=== PATIENT | male | born 2000 | race Caucasian/White ===

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

== ENCOUNTER 2020-01-01 18:09 | Emergency (ER) | payer BC ==
--- NOTE | 2020-01-01 18:34 | EDPHYS ---
Physician Documentation [facility] Name: Alexander Justice Age: 19 yrs Sex: Male : 2000 Arrival Date: 01/01/2020 Time: 18:13 Bed 14 Private MD: ED Physician Sumi Ray HPI: 12/31 19:08 This 19 yrs old Male presents to ER via Ambulatory with complaints of Rash. kb 19:08 The patient's rash thought to be caused by Dermatitis. The rash is located on the body kb diffusely. The rash can be described as macular, papular. Onset: The symptoms/episode began/occurred 5 day(s) ago. Associated signs and symptoms: Pertinent positives: itching. Severity of symptoms: At their worst the symptoms were moderate in the emergency department the symptoms are unchanged. Treatment given at home: Benadryl. The patient has not experienced similar symptoms in the past. The patient has not recently seen a physician. Historical: - Allergies: 18:34 NKA; sv - PMHx: 18:34 allergies; Diabetes - NIDDM; No longer has DM due to weight loss; Heart Murmur; sv - PSHx: 18:34 None; sv - Immunization history:: Adult Immunizations up to date. - Social history:: Smoking status: . ROS: 19:07 Constitutional: Negative for fever, chills, and weight loss, Cardiovascular: Negative kb for chest pain, palpitations, and edema, Respiratory: Negative for shortness of breath, cough, wheezing, and pleuritic chest pain, Abdomen/GI: Negative for abdominal pain, nausea, vomiting, diarrhea, and constipation, Back: Negative for injury and pain, MS/Extremity: Negative for injury and deformity, Neuro: Negative for headache, weakness, numbness, tingling, and seizure. 19:07 Skin: Positive for rash. Exam: 19:07 Constitutional: This is a well developed, well nourished patient who is awake, alert, kb and in no acute distress. Head/Face: Normocephalic, atraumatic. Chest/axilla: Normal chest wall appearance and motion. Nontender with no deformity. No lesions are appreciated. Cardiovascular: Regular rate and rhythm with a normal S1 and S2. No gallops, murmurs, or rubs. Normal PMI, no JVD. No pulse deficits. Respiratory: Lungs have equal breath sounds bilaterally, clear to auscultation and percussion. No rales, rhonchi or wheezes noted. No increased work of breathing, no retractions or nasal flaring. Abdomen/GI: Soft, non-tender, with normal bowel sounds. No distension or tympany. No guarding or rebound. No evidence of tenderness throughout. MS/ Extremity: Pulses equal, no cyanosis. Neurovascular intact. Full, normal range of motion. Neuro: Awake and alert, GCS 15, oriented to person, place, time, and situation. Cranial nerves II-XII grossly intact. Motor strength 5/5 in all extremities. Sensory grossly intact. Cerebellar exam normal. Normal gait. 19:07 Skin: rash a mild rash is noted, consistent with contact dermatitis, on the back, chest and abdomen. Vital Signs: 18:33 Weight 127.91 kg; Height 5 ft. 11 in. (180.34 cm); sv 18:37 BP 138 / 72; Pulse 88; Resp 18; Temp 98.9; Pulse Ox 100% on R/A; Weight 127.01 kg; ah Height 5 ft. 11 in. (180.34 cm); 18:37 Body Mass Index 39.05 (127.01 kg, 180.34 cm) ah MDM: 18:28 Patient medically screened. kb 19:06 Data reviewed: vital signs, nurses notes. Data interpreted: Pulse oximetry: on room air kb is 100 %. Interpretation: normal. Counseling: I had a detailed discussion with the patient and/or guardian regarding: the historical points, exam findings, and any diagnostic results supporting the discharge/admit diagnosis, the need for outpatient follow up, a family practitioner, to return to the emergency department if symptoms worsen or persist or if there are any questions or concerns that arise at home. Administered Medications: No medications were administered Disposition: 01/01/20 18:33 Discharged to Home. Impression: Allergic contact dermatitis. - Condition is Stable. - Discharge Instructions: Contact Dermatitis, [id number]. - Prescriptions for Pepcid 20 mg Oral Tablet - take 1 tablet by ORAL route every 12 hours for 5 days; 10 tablet. Prednisone 20 mg Oral Tablet - take 1 tablet by ORAL route once daily for 5 days; 5 tablet. - Medication Reconciliation Form, Thank You Letter, Antibiotic Education, Prescription Opioid Use form. - Follow up: Emergency Department; When: As needed; Reason: Worsening of condition. Follow up: Private Physician; When: 2 - 3 days; Reason: Recheck today's complaints, Continuance of care, Re-evaluation by your physician. Signatures: Colleen De Luna FNP-C TRIMMING ASSEMBLER-Ckb Queenie Sheth RN RN sv Corrections: (The following items were deleted from the chart) 18:42 18:33 01/01/2020 18:33 Discharged to Home. Impression: Allergic contact dermatitis. sv Condition is Stable. Forms are Medication Reconciliation Form, Thank You Letter, Antibiotic Education, Prescription Opioid Use. Follow up: Emergency Department; When: As needed; Reason: Worsening of condition. Follow up: Private Physician; When: 2 - 3 days; Reason: Recheck today's complaints, Continuance of care, Re-evaluation by your physician. kb
--- NOTE | 2020-01-01 18:43 | ER ---
Nurse's Notes [facility] Name: Alexander Justice Age: 19 yrs Sex: Male : 2000 Arrival Date: 01/01/2020 Time: 18:13 Bed 14 Private MD: Diagnosis: Allergic contact dermatitis Presentation: 12/31 18:33 Chief complaint: Patient states: rash started on the back first on Thursday and spread sv to his front chest area. Coronavirus screen: Proceed with normal triage. Patient denies a cough. Patient denies shortness of breath or difficulty breathing. Patient denies measured and/or subjective temperature greater than 100.4F prior to today's visit. Patient denies travel on a cruise ship or to a country the [facility] currently lists as an affected area. Patient denies contact with known and/or suspected case of COVID-19. Ebola Screen: No symptoms or risks identified at this time. Risk Assessment: Do you want to hurt yourself or someone else? Patient reports no desire to harm self or others. Onset of symptoms was December 28, 2019. 18:33 Method Of Arrival: Ambulatory sv 18:33 Acuity: ABIGAIL 5 sv 18:42 Initial Sepsis Screen: Does the patient meet any 2 criteria? No. Patient's initial sv sepsis screen is negative. Does the patient have a suspected source of infection? No. Patient's initial sepsis screen is negative. Triage Assessment: 18:34 General: Appears in no apparent distress. comfortable, obese, well developed, Behavior sv is calm, cooperative, appropriate for age. Pain: Denies pain. Neuro: Level of Consciousness is awake, alert, obeys commands, Oriented to person, place, time, situation, Moves all extremities. Full function Gait is steady, Speech is normal. Respiratory: Respiratory effort is even, unlabored. Derm: Skin is pink, warm \T\ dry. Historical: - Allergies: 18:34 NKA; sv - PMHx: 18:34 allergies; Diabetes - NIDDM; No longer has DM due to weight loss; Heart Murmur; sv - PSHx: 18:34 None; sv - Immunization history:: Adult Immunizations up to date. - Social history:: Smoking status: . Screenin:35 Abuse screen: Denies threats or abuse. Denies injuries from another. Nutritional sv screening: No deficits noted. Tuberculosis screening: No symptoms or risk factors identified. Fall Risk None identified. Assessment: 18:42 Reassessment: Patient appears in no apparent distress at this time. No changes from sv previously documented assessment. Patient and/or family updated on plan of care and expected duration. Pain level reassessed. Patient is alert, oriented x 3, equal unlabored respirations, skin warm/dry/pink. Vital Signs: 18:33 Weight 127.91 kg; Height 5 ft. 11 in. (180.34 cm); sv 18:37 BP 138 / 72; Pulse 88; Resp 18; Temp 98.9; Pulse Ox 100% on R/A; Weight 127.01 kg; Height 5 ft. 11 in. (180.34 cm); 18:37 Body Mass Index 39.05 (127.01 kg, 180.34 cm) ED Course: 18:13 Patient arrived in ED. mr 18:16 Colleen De Luna [facility]-C [facility]. kb 18:16 Sumi Ray MD is Attending Physician. kb 18:34 Triage completed. sv 18:34 Arm band placed on. sv 18:35 Patient has correct armband on for positive identification. Bed in low position. Call sv light in reach. 18:42 Queenie Sheth, RN is Primary Nurse. sv 18:42 No provider procedures requiring assistance completed. Patient did not have IV access sv during this emergency room visit. Administered Medications: No medications were administered Outcome: 18:33 Discharge ordered by MD. kb 18:42 Discharged to home ambulatory. sv 18:42 Condition: stable 18:42 Discharge instructions given to patient, Instructed on discharge instructions, follow up and referral plans. medication usage, Demonstrated understanding of instructions, follow-up care, medications, Prescriptions given X 2. 18:42 Patient left the ED. sv Signatures: Colleen De Luna FNP-C FNP-Queenie Castillo, RN [place] Miley Marino Amy, RN RN
[2020-01-01 19:01] VITALS: BP 138/72; TEMP 98.9; O2SAT 100
== END 2020-01-01 18:42 | disposition home or self-care (01) ==
LOC: ER 18:09
DX: L23.9 Allergic contact dermatitis, unspecified cause (principal)
CPT/HCPCS: 99282

== ENCOUNTER 2020-08-26 19:52 | Emergency (ER) | payer BC ==
[2020-08-26] MEDS ORDERED: predniSONE 20 MG TAB ONE (21:41)
[2020-08-26 22:03] LABS: SARS-COV-2 RT PCR NEGATIVE (NEGATIVE)
--- NOTE | 2020-08-26 23:06 | EDPHYS ---
Physician Documentation [facility] Name: Alexander Justice Age: 20 yrs Sex: Male : 2000 Arrival Date: 08/26/2020 Time: 19:53 Bed 18 Private MD: ED Physician Devan Cage HPI: 08/26 21:05 This 20 yrs old Male presents to ER via Ambulatory with complaints of Sore cp Throat, Wheezing. Historical: - Allergies: 20:04 NKA; mg2 - Home Meds: 20:04 None [Active]; mg2 - PMHx: 20:04 allergies; Heart Murmur; Diabetes - NIDDM; No longer has DM due to weight loss; mg2 - PSHx: 20:04 None; mg2 - Immunization history:: Flu vaccine is not up to date. - Social history:: Smoking status: Patient denies any tobacco usage or history of. Patient/guardian denies using alcohol, street drugs, IV drugs. ROS: 21:10 Constitutional: Negative for body aches, chills, fever, poor PO intake. cp 21:10 Eyes: Negative for injury, pain, redness, and discharge. cp 21:10 ENT: Positive for sore throat, Negative for drainage from ear(s), ear pain, difficulty swallowing, difficulty handling secretions. 21:10 Cardiovascular: Negative for chest pain, palpitations. 21:10 Respiratory: Positive for cough, with white sputum, shortness of breath, wheezing. 21:10 Abdomen/GI: Negative for abdominal pain, nausea, vomiting, and diarrhea. 21:10 Skin: Negative for rash. 21:10 Neuro: Negative for altered mental status, headache, weakness. 21:10 All other systems are negative. Exam: 21:15 Constitutional: The patient appears in no acute distress, alert, awake, non-toxic, well cp developed, well nourished, obese. 21:15 Head/Face: Normocephalic, atraumatic. cp 21:15 Eyes: Periorbital structures: appear normal, Conjunctiva: normal, no exudate, no injection, Sclera: no appreciated abnormality, Lids and lashes: appear normal, bilaterally. 21:15 ENT: External ear(s): are unremarkable, Nose: is normal, Mouth: Lips: moist, Oral mucosa: moist, Posterior pharynx: Airway: no evidence of obstruction, patent, Tonsils: no enlargement, no erythema, no exudate. 21:15 Neck: ROM/movement: is normal, is supple, without pain, no range of motions limitations, no meningismus, Lymph nodes: no appreciated lymphadenopathy. 21:15 Chest/axilla: Inspection: normal, Palpation: is normal, no crepitus, no tenderness. 21:15 Cardiovascular: Rate: tachycardic, Rhythm: regular. 21:15 Respiratory: the patient does not display signs of respiratory distress, Respirations: normal, no use of accessory muscles, no retractions, labored breathing, is not present, Breath sounds: decreased breath sounds, are not appreciated, stridor, is not appreciated, wheezing: inspiratory that is mild, is heard in the left posterior lower lobe, right posterior middle lobe and right posterior lower lobe. 21:15 Abdomen/GI: Exam negative for discomfort, distension, guarding, Inspection: abdomen appears normal. 21:15 Back: pain, is absent, ROM is normal. Vital Signs: 20:02 BP 151 / 86; Pulse 103; Resp 18; Temp 98.4; Pulse Ox 95% on R/A; Weight 126.55 kg; mg2 Height 5 ft. 11 in. (180.34 cm); 20:31 BP 133 / 72; Pulse 100; Resp 18; Pulse Ox 96% on R/A; jb4 21:45 BP 126 / 73; Pulse 96; Resp 16; Pulse Ox 95% on R/A; jb4 23:00 BP 124 / 86; Pulse 91; Resp 19; Pulse Ox 94% on R/A; jb4 20:02 Body Mass Index 38.91 (126.55 kg, 180.34 cm) mg2 MDM: 20:48 Patient medically screened. cp 23:05 Data reviewed: vital signs, nurses notes, lab test result(s), radiologic studies, plain cp films. 23:05 Differential diagnosis: group A strep tonsillitis, influenza, pharyngitis, tonsillitis, cp uvulitis, COVID-19, pneumonia. Test interpretation: by ED physician or midlevel provider: chest xray negative for infiltrates. Counseling: I had a detailed discussion with the patient and/or guardian regarding: the historical points, exam findings, and any diagnostic results supporting the discharge/admit diagnosis, lab results, radiology results, to return to the emergency department if symptoms worsen or persist or if there are any questions or concerns that arise at home. Response to treatment: the patient's symptoms have markedly improved after treatment, and as a result, I will discharge patient. 08/26 20:49 Order name: Strep 08/26 21:16 Order name: XRAY Chest (1 view) 08/26 21:31 Order name: Throat Culture EDLA 08/26 22:03 Order name: COVID-19/FLU A+B EDLA Administered Medications: 21:12 Not Given (Medication is not currently available): Albuterol HFA Inhaler 2 puffs jb4 Inhalation once 21:28 Drug: predniSONE 60 mg Route: PO; jb4 Disposition: 08/27 03:51 Co-signature as Attending Physician, Devan Cage MD. mh7 Disposition: 08/26/20 23:05 Discharged to Home. Impression: Acute upper respiratory infection, unspecified. - Condition is Stable. - Discharge Instructions: Upper Respiratory Infection, Adult. - Prescriptions for Tessalon Perles 100 mg Oral Capsule - take 2 capsule by ORAL route every 8 hours As needed; 30 capsule. Prednisone 20 mg Oral Tablet - take 2 tablet by ORAL route once daily for 5 days; 10 tablet. Albuterol Sulfate 90 mcg/actuation - inhale 1-2 puff by INHALATION route every 4-6 hours; 1 Inhaler. - Medication Reconciliation Form, Thank You Letter, Antibiotic Education, Prescription Opioid Use form. - Follow up: Private Physician; When: 1 - 2 days; Reason: Worsening of condition. - Problem is new. - Symptoms have improved. Signatures: Dispatcher [employer] [facility] Abraham Boone PA PA cp Bryson, James, RN RN jb4 Silvio Hebert RN RN [facility] Devan Cage MD MD mh7 Corrections: (The following items were deleted from the chart) 08/26 21:16 20:50 Influenza Screen (A \T\ B)+BA.LAB.BRZ ordered. [facility] 21: 20:50 CORONAVIRUS+MR.LAB.BRZ ordered. [facility] EDLA 23:25 23:05 08/26/2020 23:05 Discharged to Home. Impression: Acute upper respiratory jb4 infection, unspecified. Condition is Stable. Forms are Medication Reconciliation Form, Thank You Letter, Antibiotic Education, Prescription Opioid Use. Follow up: Private Physician; When: 1 - 2 days; Reason: Worsening of condition. Problem is new. Symptoms have improved. cp 08/27 01:44 01:43 Constitutional: Negative for cp cp
--- NOTE | 2020-08-26 23:06 | ER ---
Nurse's Notes [facility] Name: Alexander Justice Age: 20 yrs Sex: Male : 2000 Arrival Date: 08/26/2020 Time: 19:53 Bed 18 Private MD: Diagnosis: Acute upper respiratory infection, unspecified Presentation: 08/26 20:02 Chief complaint: Patient states: i started having sore throat yesterday and cough with mg2 wheezing today. Coronavirus screen: Client presents with at least one sign or symptom that may indicate coronavirus-19. Standard/surgical mask placed on the client. Provider contacted for isolation considerations. Ebola Screen: No symptoms or risks identified at this time. Initial Sepsis Screen: Does the patient meet any 2 criteria? No. Patient's initial sepsis screen is negative. Does the patient have a suspected source of infection? No. Patient's initial sepsis screen is negative. Risk Assessment: Do you want to hurt yourself or someone else? Patient reports no desire to harm self or others. Onset of symptoms was August 26, 2020. 20:02 Method Of Arrival: Ambulatory mg2 20:02 Acuity: ABIGAIL 4 mg2 Historical: - Allergies: 20:04 NKA; mg2 - Home Meds: 20:04 None [Active]; mg2 - PMHx: 20:04 allergies; Heart Murmur; Diabetes - NIDDM; No longer has DM due to weight loss; mg2 - PSHx: 20:04 None; mg2 - Immunization history:: Flu vaccine is not up to date. - Social history:: Smoking status: Patient denies any tobacco usage or history of. Patient/guardian denies using alcohol, street drugs, IV drugs. Screenin:35 Abuse screen: Denies threats or abuse. Nutritional screening: No deficits noted. jb4 Tuberculosis screening: No symptoms or risk factors identified. Fall Risk None identified. Assessment: 20:31 General: Appears in no apparent distress. comfortable, Behavior is calm, cooperative, jb4 appropriate for age. Pain: Complains of pain in chest Pain does not radiate. Pain currently is 0 out of 10 on a pain scale. at worst was 5 out of 10 on a pain scale. Quality of pain is described as sharp, Is episodic. Neuro: Level of Consciousness is awake, alert, obeys commands, Oriented to person, place, time, situation. Cardiovascular: Patient's skin is warm and dry. Respiratory: Airway is patent Respiratory effort is even, unlabored, Respiratory pattern is regular, symmetrical, Breath sounds with wheezes bilaterally. GI: No signs and/or symptoms were reported involving the gastrointestinal system. : No signs and/or symptoms were reported regarding the genitourinary system. EENT: Throat is clear is pink with gag reflex present. Derm: Skin is intact, Skin is pink, warm \T\ dry. Musculoskeletal: Circulation, motion, and sensation intact. Range of motion: intact in all extremities. 21:30 Reassessment: Patient appears in no apparent distress at this time. Patient and/or jb4 family updated on plan of care and expected duration. Pain level reassessed. Patient is alert, oriented x 3, equal unlabored respirations, skin warm/dry/pink. 22:30 Reassessment: Patient appears in no apparent distress at this time. Patient and/or jb4 family updated on plan of care and expected duration. Pain level reassessed. Patient is alert, oriented x 3, equal unlabored respirations, skin warm/dry/pink. 23:24 Reassessment: Patient appears in no apparent distress at this time. Patient and/or jb4 family updated on plan of care and expected duration. Pain level reassessed. Patient is alert, oriented x 3, equal unlabored respirations, skin warm/dry/pink. Vital Signs: 20:02 BP 151 / 86; Pulse 103; Resp 18; Temp 98.4; Pulse Ox 95% on R/A; Weight 126.55 kg; mg2 Height 5 ft. 11 in. (180.34 cm); 20:31 BP 133 / 72; Pulse 100; Resp 18; Pulse Ox 96% on R/A; jb4 21:45 BP 126 / 73; Pulse 96; Resp 16; Pulse Ox 95% on R/A; jb4 23:00 BP 124 / 86; Pulse 91; Resp 19; Pulse Ox 94% on R/A; jb4 20:02 Body Mass Index 38.91 (126.55 kg, 180.34 cm) mg2 ED Course: 19:53 Patient arrived in ED. cl3 20:03 Triage completed. mg2 20:03 Arm band placed on. mg2 20:31 Peterson Rivera, RN is Primary Nurse. jb4 20:35 Patient has correct armband on for positive identification. Bed in low position. Call jb4 light in reach. Side rails up X 1. Pulse ox on. NIBP on. 20:40 Abraham Boone PA is PHCP. cp 20:40 Devan Cage MD is Attending Physician. cp 21:16 COVID swab sent to lab. jp3 21:16 Flu and/or RSV swab sent to lab. jp3 21:35 XRAY Chest (1 view) In Process Unspecified. EDMS 23:24 No provider procedures requiring assistance completed. Patient did not have IV access jb4 during this emergency room visit. Administered Medications: 21:12 Not Given (Medication is not currently available): Albuterol HFA Inhaler 2 puffs jb4 Inhalation once 21:28 Drug: predniSONE 60 mg Route: PO; jb4 Outcome: 23:05 Discharge ordered by . cp 23:24 Discharged to home ambulatory. jb4 23:24 Condition: stable 23:24 Discharge instructions given to patient, Instructed on discharge instructions, follow up and referral plans. medication usage, Demonstrated understanding of instructions, follow-up care, medications, Prescriptions given X 3. 23:25 Patient left the ED. jb4 Signatures: Dispatcher [employer] EDMS Abraham Boone PA PA cp Peterson Rivera RN RN jb4 Silvio Hebert RN RN [facility] [place] Atul Loza jp3 Kishor Dempsey cl3 Corrections: (The following items were deleted from the chart) 20:37 20:31 Respiratory: Airway is patent Respiratory effort is even, unlabored, Respiratory jb4 pattern is regular, symmetrical, Breath sounds are clear bilaterally. jb4
[2020-08-27 02:44] VITALS: TEMP 98.4
[2020-08-27 02:49] VITALS: BP 124/86; O2SAT 94
--- NOTE | 2020-08-27 08:11 | RAD REPORT ---
EXAM DESCRIPTION: RAD - Chest Single View - 08/26/2020 9:35 pm CLINICAL HISTORY: Cough;SOB COMPARISON: June 2019 TECHNIQUE: AP portable chest image was obtained 08/26/2020 9:35 pm . FINDINGS: Lungs are clear. Heart and vasculature are normal. No measurable pleural effusion and no p neumothorax. No acute bony abnormality seen. No acute aortic findings suspected. IMPRESSION: No acute cardiopulmonary process. No significant change from comparison study.
== END 2020-08-26 23:25 | disposition home or self-care (01) ==
LOC: ER 19:52
DX: J06.9 Acute upper respiratory infection, unspecified (principal); Z20.822 Contact with and (suspected) exposure to COVID-19
CPT/HCPCS: 87070; 87081; 0240U; 71045; 99284; J7512

== ENCOUNTER 2021-12-13 11:00 | Emergency (ER) | payer BC ==
--- OUTSIDE RECORDS SUMMARY | 2021-12-13 11:03 | XMS REPORT | Continuity of Care Document ---
:2000 Author Organization [facility] t Address [address] [place] [address] Dr. Bain [address] [place] [id number] Care Team Providers Name Role Phone Unavailable Unavailable Unavailable Problems This patient has no known problems. Allergies, Adverse Reactions, Alerts This patient has no known allergies or adverse reactions. Medications This patient has no known medications. Procedures This patient has no known procedures. Results This patient has no known results.
--- NOTE | 2021-12-13 12:36 | ER ---
Nurse's Notes [facility] Name: Alexander Justice Age: 21 yrs Sex: Male : 2000 Arrival Date: 12/13/2021 Time: 11:04 Bed 12 Private MD: Diagnosis: Streptococcal pharyngitis Presentation: 12/13 11:27 Chief complaint: Patient states: sore throat , headache, body aches, SOB since iw yesterday. Coronavirus screen: Client presents with at least one sign or symptom that may indicate coronavirus-19. Ebola Screen: Patient negative for fever greater than or equal to 101.5 degrees Fahrenheit, and additional compatible Ebola Virus Disease symptoms Patient denies exposure to infectious person. Patient denies travel to an Ebola-affected area in the 21 days before illness onset. No symptoms or risks identified at this time. Initial Sepsis Screen: Does the patient meet any 2 criteria? No. Patient's initial sepsis screen is negative. Does the patient have a suspected source of infection? No. Patient's initial sepsis screen is negative. Risk Assessment: Do you want to hurt yourself or someone else? Patient reports no desire to harm self or others. Onset of symptoms was December 12, 2021. 11:27 Method Of Arrival: Ambulatory iw 11:27 Acuity: ABIGAIL 4 iw Historical: - Allergies: 11:28 NKA; iw - PMHx: 11:28 allergies; Diabetes - NIDDM; No longer has DM due to weight loss; Heart Murmur; iw Vital Signs: 11:30 BP 140 / 86; Pulse 110; Resp 18 S; Temp 99.2; Pulse Ox 100% on R/A; iw ED Course: 11:04 Patient arrived in ED. rg4 11:22 Colleen De Luna FNP-C is [facility]. kb 11:22 Sumi Ray MD is Attending Physician. kb 11:28 Triage completed. iw 11:29 Arm band placed on. iw 11:35 Reanna Anderson, RN is Primary Nurse. iw 11:46 Flu Sent. mb7 11:46 COVID-19 SARS RT PCR (Document "Date of Onset" if Symptomatic) Sent. mb7 11:46 Strep Sent. mb7 Administered Medications: No medications were administered Outcome: 12:36 Discharge ordered by . kb 12:57 Patient left the ED. iw Signatures: Colleen De Luna, DELL-C [employer]-Reanna Marks, RN RN iw Roxanne Giles rg4 Miley Renteria mb7 Corrections: (The following items were deleted from the chart) 11:35 11:30 Pulse 110bpm; Resp 18bpm; Spontaneous; Pulse Ox 100% RA; Temp 99.2F; iw iw
--- NOTE | 2021-12-13 12:36 | EDPHYS ---
Physician Documentation [facility] Name: Alexander Justice Age: 21 yrs Sex: Male : 2000 Arrival Date: 12/13/2021 Time: 11:04 Bed 12 Private MD: ED Physician Sumi Ray HPI: 12/13 12:31 This 21 yrs old Male presents to ER via Ambulatory with complaints of Sore Throat. kb 12:31 The patient presents with sore throat. The patient describes throat pain as constant. kb Onset: The symptoms/episode began/occurred yesterday. Severity of symptoms: At their worst the symptoms were moderate, in the emergency department the symptoms are unchanged. Modifying factors: The symptoms are alleviated by nothing, the symptoms are aggravated by swallowing, Patient's oral intake status: limited fluid intake, limited food intake. Associated signs and symptoms: Pertinent positives: flu-like symptoms, headache, Sore throat. The patient has not experienced similar symptoms in the past. The patient has not recently seen a physician. Historical: - Allergies: 11:28 NKA; iw - PMHx: 11:28 allergies; Diabetes - NIDDM; No longer has DM due to weight loss; Heart Murmur; iw ROS: 12:29 Constitutional: Positive for body aches. kb 12:29 ENT: Positive for sore throat. 12:29 Respiratory: Positive for shortness of breath. 12:29 Neuro: Positive for headache. 12:29 All other systems are negative. 12:36 Abdomen/GI: Negative for abdominal pain, nausea, vomiting, diarrhea, and constipation. kb Exam: 12:30 Constitutional: This is a well developed, well nourished patient who is awake, alert, kb and in no acute distress. Head/Face: Normocephalic, atraumatic. Cardiovascular: Regular rate and rhythm with a normal S1 and S2. No gallops, murmurs, or rubs. No pulse deficits. Respiratory: Respirations even and unlabored. No increased work of breathing. Talking in full sentences Skin: Warm, dry with normal turgor. Normal color. MS/ Extremity: Pulses equal, no cyanosis. Neurovascular intact. Full, normal range of motion. Neuro: Awake and alert, GCS 15, oriented to person, place, time, and situation. Moves all extremities. Normal gait. Psych: Awake, alert, with orientation to person, place and time. Behavior, mood, and affect are within normal limits. 12:30 ENT: Posterior pharynx: Airway: normal, no evidence of obstruction, Tonsils: bilaterally enlarged, with erythema, Uvula: normal, midline, swelling, that is mild, erythema, that is moderate. Vital Signs: 11:30 BP 140 / 86; Pulse 110; Resp 18 S; Temp 99.2; Pulse Ox 100% on R/A; iw MDM: 11:27 Patient medically screened. kb 12:29 Data reviewed: vital signs, nurses notes. Data interpreted: Pulse oximetry: on room air kb is 100 %. Interpretation: normal. Counseling: I had a detailed discussion with the patient and/or guardian regarding: the historical points, exam findings, and any diagnostic results supporting the discharge/admit diagnosis, lab results, the need for outpatient follow up, a family practitioner, to return to the emergency department if symptoms worsen or persist or if there are any questions or concerns that arise at home. 12/13 11:27 Order name: Strep; Complete Time: 12:32 kb 12/13 11:27 Order name: Flu; Complete Time: 12:25 kb 12/13 11:27 Order name: COVID-19 SARS RT PCR (Document "Date of Onset" if Symptomatic); Complete kb Time: 12:35 Administered Medications: No medications were administered Disposition: 14:38 Co-signature as Attending Physician, Sumi Ray MD I agree with the assessment ma2 and plan of care. Disposition Summary: 12/13/21 12:36 Discharge Ordered Location: Home kb Condition: Stable kb Diagnosis - Streptococcal pharyngitis kb Followup: kb - With: Emergency Department - When: As needed - Reason: Worsening of condition Followup: kb - With: Private Physician - When: 2 - 3 days - Reason: Recheck today's complaints, Continuance of care, Re-evaluation by your physician Discharge Instructions: - Discharge Summary Sheet kb - Strep Throat, Adult, [id number] kb Forms: - Medication Reconciliation Form kb - Thank You Letter kb - Antibiotic Education kb - Prescription Opioid Use kb Prescriptions: - Augmentin 875-125 mg Oral Tablet - take 1 tablet by ORAL route every 12 hours for 10 days; 20 tablet; Refills: 0, kb Product Selection Permitted Signatures: Dispatcher [employer] Colleen Velasquez, SUPER[employer]OR [employer]-C SU[employer]OR [employer]-Ckb Reanna Anderson, RN RN Sumi Waggoner MD MD ma2
[2021-12-13 13:12] VITALS: BP 140/86; TEMP 99.2; O2SAT 100
== END 2021-12-13 12:57 | disposition home or self-care (01) ==
LOC: ER 11:00
DX: J02.0 Streptococcal pharyngitis (principal); Z20.822 Contact with and (suspected) exposure to COVID-19
CPT/HCPCS: 87081; 87804 ×2; 99282; U0003

== ENCOUNTER 2022-03-31 08:29 | Emergency (ER) | payer BC ==
--- OUTSIDE RECORDS SUMMARY | 2022-03-31 08:34 | XMS REPORT | Continuity of Care Document ---
:2000 Author Organization [facility] t Address [address] [place] [address] Care Team Providers Name Role Phone Unavailable Unavailable Unavailable Payers Payer Name Policy Type Policy Number Effective Date Expiration Date S ource Problems This patient has no known problems. Allergies, Adverse Reactions, Alerts Allergy Allergy Status Severity Reaction(s) Onset Inactive Treating Comm ents Source Name Type Date Date Clinician Unable DA Active U 2020-06 [facility] to 0-01 Assess 00:00: 00 No Known DA Active U 2020-06 [facility] Drug 0-01 Allergie 00:00: s 00 Medications This patient has no known medications. Procedures This patient has no known procedures. Encounters Start End Encounter Admission Attending Care Care Encounter Source Date/Time Date/Time Type Type Clinicians Facility Department ID 2021-03-29 Inpatient [facility] [id number] [facility] 15:53:00 75 2021-03-29 2021-03-29 Emergency [facility] [id number] [facility] 15:53:00 15:53:00 75 Results Test Description Test Time Test Comments Results Result Comments Source UA, Urinalysis Rflx Cult/Sedmt 2021-03-29 16:52:00 Test Item Value Reference Range Interpretation Comme nts Color,Urine (test code = UCOL) Yellow Y Clarity,Urine (test code = UCLAR) Clear Clear PH,Urine (test code = UPH.XX) 7.0 5.5-8.5 Specific [place],Urine (test code = USG) 1.025 1.005-1.030 N Blood,Urine (test code = UBLD) Negative cells/uL Negative Protein,Urine (test code = UPRO) Negative mg/dL Negative Glucose,Urine (UA) (test code = UGLU) Negative mg/dL Negative Ketones,Urine (test code = UKET) Negative mg/dL Negative Nitrate,Urine (test code = UNIT) Negative Negative Bilirubin,Urine (test code = UBIL) Negative mg/dL Negative Urobilinogen,Urine (test code = UURO) 1.0 mg/dL Negative Leukocyte Esterase,Urine (test code = ULEU) Negative cells/uL Negat zaki Drug Screen,[id number] 16:52:00 Test Item Value Reference Range Interpretation Comments PCP Phencyclidine Screen,Urine (test Negative Negative code = PCPU) Amphetamine Screen,Urine (test code Negative Negative = AMPU) Methadone Screen,Urine (test code = Negative Negative METHU) Opiate Screen,Urine (test code = Negative Negative UOPIS) Barbituates Screen,Urine (test code Negative Negative = BARBU) Benzodiazepines Screen,Urine (test Negative Negative code = UBENZS) Cocaine Screen,Urine (test code = Negative Negative UCOCS) Cannabinoid Screen,Urine (test code Negative Negative = UTHCS) Propoxyphene Screen, Urine (test Negative Negative code = UPROP) Ethanol [id number] 16:31:00 Test Item Value Reference Range Interpretation Comments Ethanol (test code = ETOH) 3 mg/dL Coronavirus PCR, COVID19 [id number] 16:31:00 Test Item Value Reference Range Interpretation Comments Coronavirus PCR, For use under Emergency COVID19 Rapid (test Use Authorization (EUA) code = SARSCOV2) only. Coronavirus PCR, Reference Range: COVID19 Rapid (test Negative code = MCNMEMI14.1) SARS-CoV-2 PCR Result: Negative by PCR (test code = SARS-CoV-2 PCR Result:) COVID-19 Status: AsymptomaticComplete Blood Count Auto [id number] 16:31:00 Test Item Value Reference Range Interpretation Comments White Blood Count (test code = 10.1 x10 3/uL 4.4-10.5 N WBCT) Red Blood Count (test code = 5.18 x10 6/uL 4.10-5.70 N RBC) Hemoglobin (test code = HGBT) 14.6 g/dL 13.4-17.4 N Hematocrit (test code = HCTT) 44.8 % 38.7-52.0 N Mean Corpuscular Volume (test 86.50 fL 80.00-100.00 N code = MCV) Mean Corpuscular Hemoglobin 28.2 pg 27.0-32.5 N (test code = MCH) Mean Corpuscular HGB Conc 32.60 g/dL 32.00-37.50 N (test code = MCHC) RDW Coefficient of Variation 12.7 % 11.5-14.5 N (test code = RDWCV) Platelet Count (test code = 254.0 x10 3/uL 140.0-440.0 N PLTT) Mean Platelet Volume (test 10.1 fL code = MPV) Immature Granulocytes % (Auto) 0.3 % 0.0-5.0 N (test code = IMMGRAN%) Neutrophils % (Auto) (test 64.0 % 36.0-70.0 N code = NE%) Lymphocytes % (Auto) (test 24.1 % 12.0-44.0 N code = LY%) Monocytes % (Auto) (test code 9.8 % 0.0-11.0 N = MO%) Eosinophils % (Auto) (test 1.4 % 0.0-7.0 N code = EO%) Basophils % (Auto) (test code 0.4 % 0.0-2.0 N = BA%) Immature Granulocytes # (Auto) 0.03 x10 3/uL (test code = IMMGRAN#) Neutrophils # (Auto) (test 6.5 x10 3/uL 1.6-7.4 N code = NE#) Lymphocytes # (Auto) (test 2.43 x10 3/uL 0.50-4.60 N code = LY#) Monocytes # (Auto) (test code 0.99 x10 3/uL 0.00-1.20 N = MO#) Eosinophils # (Auto) (test 0.14 x10 3/uL 0.00-0.74 N code = EO#) Basophils # (Auto) (test code 0.04 x10 3/uL 0.00-0.21 N = BA#) nRBC Abs (test code = NRBCA) 0 nRBC Pct (test code = NRBCP) 0 % Comprehensive Metabolic [id number] 16:31:00 Test Item Value Reference Range Interpretation Comments SODIUM (test code = NA) 142.0 mmol/L 136.0-145.0 N Potassium,K (test code = K) 3.8 mmol/L 3.0-5.1 N Chloride (test code = CL) 106 mmol/L 98-107 N Carbon Dioxide (test code = 29 mmol/L 20-31 N CO2) Anion Gap (test code = GAP) 7 mmol/L 5-15 N Blood Urea Nitrogen (test code 15 mg/dL 9-23 N = BUN) Creatinine (test code = CREATT) 0.92 mg/dL 0.55-1.02 N Creatinine Clr Calc Pharmacy 179.47 mL/min (test code = CRCLPHA) Estimated GFR ( Estefani > 60 mL/min/1.73m2 (test code = EGFRAA) Estimated GFR (Non Afr Estefani > 60 mL/min/1.73m2 (test code = EGFRNAA) BUN/Creatinine Ratio (test code 16 ratio 10-20 N = BCRATIO) Glucose (test code = GLU) 121 mg/dL 74-106 H Osmolality,Calculated (test 295.3 code = OSMOC) Calcium (test code = CA) 9.0 mg/dL 8.3-10.6 N Bilirubin,Total (test code = 0.2 mg/dL 0.2-1.1 N BILIT) Aspartate Amino Transferase 18 U/L 0-34 N (test code = AST) Alanine Aminotransferase (test 19 U/L 10-49 N code = ALT) Total Protein (test code = TP) 7.3 g/dL 5.7-8.2 N Albumin Level (test code = ALB) 4.8 g/dL 3.2-4.8 N Globulin (test code = GLOB) 2.5 mg/dL 2.3-3.5 N Albumin/Globulin Ratio (test 1.9 ratio 0.8-2.0 N code = AGRATIO) Alkaline Phosphatase (test code 50 U/L 46-116 N = ALP)
--- NOTE | 2022-03-31 10:49 | ER ---
Nurse's Notes [facility] Name: Alexander Justice Age: 21 yrs Sex: Male : 2000 Arrival Date: 03/31/2022 Time: 08:32 Bed 11 Private MD: Diagnosis: Acute upper respiratory infection, unspecified Presentation: 03/31 08:42 Chief complaint: Patient states: he was around his cousin last week who was dx with ap3 pnumonia. patient now reports body aches, cough, fatigue and headache. patient denies fever. Coronavirus screen: Client presents with at least one sign or symptom that may indicate coronavirus-19. Ebola Screen: No symptoms or risks identified at this time. Initial Sepsis Screen: Does the patient meet any 2 criteria? No. Patient's initial sepsis screen is negative. Does the patient have a suspected source of infection? No. Patient's initial sepsis screen is negative. Risk Assessment: Do you want to hurt yourself or someone else? Patient reports no desire to harm self or others. Onset of symptoms was March 28, 2022. 08:42 Method Of Arrival: Ambulatory ap3 08:42 Acuity: ABIGAIL 4 ap3 Triage Assessment: 08:44 General: Appears in no apparent distress. Behavior is calm, cooperative, appropriate ap3 for age. Pain: Complains of pain in generalized body aches. Neuro: Level of Consciousness is awake, alert, obeys commands, Oriented to person, place, time, situation. Cardiovascular: Patient's skin is warm and dry. Respiratory: Airway is patent Respiratory effort is even, unlabored, Respiratory pattern is regular, symmetrical. 08:45 General: Reports feeling ill for fatigue for. Respiratory: Reports cough that is. ap3 Historical: - Allergies: 08:44 NKA; ap3 - PMHx: 08:44 allergies; Diabetes - NIDDM; No longer has DM due to weight loss; Heart Murmur; ap3 - Immunization history:: Client reports having NOT received the Covid vaccine. - Social history:: Smoking status: Reported history of juuling and/or vaping. Screenin:44 Abuse screen: Denies threats or abuse. Nutritional screening: No deficits noted. ap3 Tuberculosis screening: No symptoms or risk factors identified. Fall Risk None identified. Assessment: 08:45 Pain: Pain began gradually. ap3 11:00 General: Appears in no apparent distress. comfortable, Behavior is calm, cooperative. ss Cardiovascular: Capillary refill < 3 seconds is brisk in bilateral fingers. Respiratory: Airway is patent Respiratory effort is even, unlabored, Respiratory pattern is regular, symmetrical. Vital Signs: 08:42 BP 163 / 98; Pulse 111; Resp 18; Temp 98.8; Pulse Ox 98% ; Weight 131.54 kg; Height 5 ap3 ft. 11 in. (180.34 cm); 08:42 Body Mass Index 40.45 (131.54 kg, 180.34 cm) ap3 ED Course: 08:32 Patient arrived in ED. as 08:39 [facility]C [facility] kb 08:39 Tommie Hunt MD is Attending Physician. kb 08:44 Triage completed. ap3 08:44 Arm band placed on right wrist. ap3 08:45 Patient has correct armband on for positive identification. Pulse ox on. NIBP on. ap3 08:45 Patient maintains SpO2 saturation greater than 95% on room air. ap3 08:49 Flu Sent. ap3 08:49 Strep Sent. ap3 08:49 COVID-19 SARS RT PCR (Document "Date of Onset" if Symptomatic) Sent. ap3 11:06 Dina Cordova, [place] is Primary Nurse. ss 11:15 No provider procedures requiring assistance completed. Patient did not have IV access ss during this emergency room visit. Administered Medications: No medications were administered Medication: 08:45 VIS not applicable for this client. ap3 Outcome: 10:48 Discharge ordered by . kb 11:00 Discharged to home ambulatory. ss 11:00 Condition: good 11:00 Discharge instructions given to patient, Instructed on discharge instructions, follow up and referral plans. medication usage, Demonstrated understanding of instructions, follow-up care, medications. 11:17 Patient left the ED. ss Signatures: Colleen De Luna FNP-C FNP-Catarina Montoya as Dina Cordova, [place] RN ss Sujata Baxter RN RN ap3
--- NOTE | 2022-03-31 10:49 | EDPHYS ---
Physician Documentation [facility] Name: Alexander Justice Age: 21 yrs Sex: Male : 2000 Arrival Date: 03/31/2022 Time: 08:32 Bed 11 Private MD: ED Physician Tommie Hunt HPI: 03/31 11:52 This 21 yrs old Male presents to ER via Ambulatory with complaints of Chest Pain, kb Congestion, Sore Throat, fatigue. 11:52 The patient or guardian reports cough, that is intermittent, described as mild, flu kb symptoms, myalgias. Onset: The symptoms/episode began/occurred 2 day(s) ago. Severity of symptoms: At their worst the symptoms were moderate, in the emergency department the symptoms are unchanged. Modifying factors: The symptoms are alleviated by nothing, the symptoms are aggravated by nothing. Associated signs and symptoms: Pertinent positives: rhinorrhea, sore throat. The patient has not experienced similar symptoms in the past. The patient has not recently seen a physician. Pt reports cough, congestion, rhinorrhea, bodyaches, sore throat, headache and fatigue since yesteray. Historical: - Allergies: 08:44 NKA; ap3 - PMHx: 08:44 allergies; Diabetes - NIDDM; No longer has DM due to weight loss; Heart Murmur; ap3 - Immunization history:: Client reports having NOT received the Covid vaccine. - Social history:: Smoking status: Reported history of juuling and/or vaping. ROS: 11:51 Cardiovascular: Negative for chest pain, palpitations, and edema. kb 11:51 Constitutional: Positive for body aches, fatigue, malaise. 11:51 ENT: Positive for rhinorrhea, sinus congestion, sore throat. 11:51 Respiratory: Positive for cough. 11:51 Neuro: Positive for headache. 11:51 All other systems are negative. Exam: 11:51 Constitutional: This is a well developed, well nourished patient who is awake, alert, kb and in no acute distress. Head/Face: Normocephalic, atraumatic. ENT: Moist Mucous membranes Cardiovascular: Regular rate and rhythm with a normal S1 and S2. No gallops, murmurs, or rubs. No pulse deficits. Respiratory: Respirations even and unlabored. No increased work of breathing. Talking in full sentences Abdomen/GI: Soft, non-tender. No distention Skin: Warm, dry with normal turgor. Normal color. MS/ Extremity: Pulses equal, no cyanosis. Neurovascular intact. Full, normal range of motion. Neuro: Awake and alert, GCS 15, oriented to person, place, time, and situation. Moves all extremities. Normal gait. Psych: Awake, alert, with orientation to person, place and time. Behavior, mood, and affect are within normal limits. Vital Signs: 08:42 BP 163 / 98; Pulse 111; Resp 18; Temp 98.8; Pulse Ox 98% ; Weight 131.54 kg; Height 5 ap3 ft. 11 in. (180.34 cm); 08:42 Body Mass Index 40.45 (131.54 kg, 180.34 cm) ap3 MDM: 08:44 Patient medically screened. 11:51 Data reviewed: vital signs, nurses notes. Data interpreted: Pulse oximetry: on room air kb is 98 %. Interpretation: normal. Counseling: I had a detailed discussion with the patient and/or guardian regarding: the historical points, exam findings, and any diagnostic results supporting the discharge/admit diagnosis, lab results, the need for outpatient follow up, a family practitioner, to return to the emergency department if symptoms worsen or persist or if there are any questions or concerns that arise at home. 03/31 08:44 Order name: Flu 03/31 08:44 Order name: Strep 03/31 08:44 Order name: COVID-19 SARS RT PCR (Document "Date of Onset" if Symptomatic) 03/31 09:14 Order name: Group A Streptococcus Rapid Sc; Complete Time: 09:15 EDMS 03/31 09:16 Order name: Influenza Screen (A ; Complete Time: 09:18 EDMS 03/31 09:37 Order name: SARS-COV-2 RT PCR; Complete Time: 09:41 EDMS Administered Medications: No medications were administered Disposition: 13:47 PA/HOSPITALIST NOCTURNIST PHYSICIAN's history reviewed, patient interviewed, and examined. I agree with assessment jr11 and care plan and confirm the diagnosis (es) above. Attestation: The patient's history, exam findings, diagnostics, and a summary of any interventions or procedures was reviewed in detail with Tommie Hunt MD. Disposition Summary: 10/03/22 10:48 Discharge Ordered Location: Home kb Condition: Stable kb Diagnosis - Acute upper respiratory infection, unspecified kb Followup: kb - With: Emergency Department - When: As needed - Reason: Worsening of condition Followup: kb - With: Private Physician - When: 2 - 3 days - Reason: Recheck today's complaints, Continuance of care, Re-evaluation by your physician Discharge Instructions: - Discharge Summary Sheet kb - Upper Respiratory Infection, Adult, [id number] kb - Viral Respiratory Infection, [id number] kb Forms: - Medication Reconciliation Form kb - Thank You Letter kb - Antibiotic Education kb - Prescription Opioid Use kb - School release form ss - Work release form ss Signatures: Dispatcher [employer] EDColleen Cavazos FNP-C FNP-Ckb Prokisch, Amanda, RN RN Tommie Wilkerson MD MD jr11
[2022-03-31 11:31] VITALS: BP 163/98; TEMP 98.8; O2SAT 98
== END 2022-03-31 11:17 | disposition home or self-care (01) ==
LOC: ER 08:29
DX: J06.9 Acute upper respiratory infection, unspecified (principal); Z20.822 Contact with and (suspected) exposure to COVID-19
CPT/HCPCS: 87070; 87081; 87804 ×2; 99284; U0003

== ENCOUNTER 2022-07-14 10:52 | Emergency (ER) | payer BC, SELFPAY ==
--- OUTSIDE RECORDS SUMMARY | 2022-07-14 10:55 | XMS REPORT | Continuity of Care Document ---
:2000 Author Organization [facility] t Address [address] [place] [address] Care Team Providers Name Role Phone Unavailable Unavailable Unavailable Payers Payer Name Policy Type Policy Number Effective Date Expiration Date S ource Problems This patient has no known problems. Allergies, Adverse Reactions, Alerts Allergy Allergy Status Severity Reaction(s) Onset Inactive Treating Comm ents Source Name Type Date Date Clinician Unable DA Active U 2020-06 [facility] to 0-01 Assess 00:00: 00 No Known DA Active U 2020-06 [facility] Drug 0-01 Allergie 00:00: s 00 Medications This patient has no known medications. Procedures This patient has no known procedures. Encounters Start End Encounter Admission Attending Care Care Encounter Source Date/Time Date/Time Type Type Clinicians Facility Department ID 2021-03-29 Inpatient [facility] [id number] [facility] 15:53:00 75 2021-03-29 2021-03-29 Emergency [facility] [id number] [facility] 15:53:00 15:53:00 75 Results Test Description Test Time Test Comments Results Result Comments Source UA, Urinalysis Rflx Cult/Sedmt 2021-03-29 16:52:00 Test Item Value Reference Range Interpretation Comme nts Color,Urine (test code = UCOL) Yellow Y Clarity,Urine (test code = UCLAR) Clear Clear PH,Urine (test code = UPH.XX) 7.0 5.5-8.5 Specific [place],Urine (test code = USG) 1.025 1.005-1.030 N [...] = ULEU) Negative cells/uL Negat zaki Drug Screen,[id number] 16:52:00 Test Item Value Reference Range Interpretation [...] (test Negative Negative code = UPROP) Ethanol [id number] 16:31:00 Test Item Value Reference Range Interpretation Comments Ethanol (test code = ETOH) 3 mg/dL Coronavirus PCR, COVID19 [id number] 16:31:00 Test Item Value Reference Range Interpretation Comments Coronavirus PCR, For use under Emergency COVID19 Rapid (test Use Authorization (EUA) code = SARSCOV2) only. Coronavirus PCR, Reference Range: COVID19 Rapid (test Negative code = FPBRAQP33.1) SARS-CoV-2 PCR Result: Negative by PCR (test code = SARS-CoV-2 PCR Result:) COVID-19 Status: AsymptomaticComplete Blood Count Auto [id number] 16:31:00 Test Item Value Reference Range Interpretation [...] code = NRBCP) 0 % Comprehensive Metabolic [id number] 16:31:00 Test Item Value Reference Range Interpretation [...]
[2022-07-14] MEDS ORDERED: KETOROLAC 30 MG/ML INJ ONE (11:35)
[2022-07-14 12:28] LABS: SARS-COV-2 RT PCR NEGATIVE (NEGATIVE)
--- NOTE | 2022-07-14 12:51 | EDPHYS ---
Physician Documentation [facility] Name: Alexander Justice Age: 21 yrs Sex: Male : 2000 Arrival Date: 07/14/2022 Time: 11:00 Bed 11 Private MD: ED Physician Kody Jackson HPI: 07/14 11:35 This 21 yrs old Male presents to ER via Ambulatory with complaints of Sore Throat, Back jh7 Pain. 11:35 The patient presents with sore throat. The patient describes throat pain as scratchy. jh7 Onset: The symptoms/episode began/occurred yesterday. Associated signs and symptoms: Pertinent positives: cough, rhinorrhea, Sore throat Pertinent negatives chills, fever, headache, shortness of breath. Patient also reports thoracic back pain with no injury starting yesterday. No other symptoms at this time.. Historical: - Allergies: 11:34 NKA; jh5 - PMHx: 11:34 allergies; Diabetes - NIDDM; No longer has DM due to weight loss; Heart Murmur; jh5 - Immunization history:: Adult Immunizations up to date. - Social history:: Smoking status: Patient denies any tobacco usage or history of. ROS: 11:35 Constitutional: Negative for fever, chills, and weight loss, Eyes: Negative for injury, jh7 pain, redness, and discharge, Cardiovascular: Negative for chest pain, palpitations, and edema, Abdomen/GI: Negative for abdominal pain, nausea, vomiting, diarrhea, and constipation, MS/Extremity: Negative for injury and deformity. 11:35 Skin: Negative for injury, rash, and discoloration, Neuro: Negative for headache, weakness, numbness, tingling, and seizure. 11:35 ENT: Positive for nasal discharge, sore throat. 11:35 Respiratory: Positive for cough, Negative for shortness of breath, wheezing. 11:35 Back: Positive for pain at rest, Negative for Flank pain. 11:35 All other systems are negative. Exam: 11:35 Constitutional: This is a well developed, well nourished patient who is awake, alert, jh7 and in no acute distress. Head/Face: Normocephalic, atraumatic. Eyes: Pupils equal round and reactive to light, extra-ocular motions intact. Lids and lashes normal. Conjunctiva and sclera are non-icteric and not injected. Cornea within normal limits. Periorbital areas with no swelling, redness, or edema. Neck: Trachea midline, no thyromegaly or masses palpated, and no cervical lymphadenopathy. Supple, full range of motion without nuchal rigidity, or vertebral point tenderness. No Meningismus. Cardiovascular: Regular rate and rhythm with a normal S1 and S2. No gallops, murmurs, or rubs. Normal PMI, no JVD. No pulse deficits. Respiratory: Lungs have equal breath sounds bilaterally, clear to auscultation and percussion. No rales, rhonchi or wheezes noted. No increased work of breathing, no retractions or nasal flaring. Abdomen/GI: Soft, non-tender, with normal bowel sounds. No distension or tympany. No guarding or rebound. No evidence of tenderness throughout. Back: No spinal tenderness. No costovertebral tenderness. Full range of motion. Skin: Warm, dry with normal turgor. Normal color with no rashes, no lesions, and no evidence of cellulitis. MS/ Extremity: Pulses equal, no cyanosis. Neurovascular intact. Full, normal range of motion. Neuro: Awake and alert, GCS 15, oriented to person, place, time, and situation. Motor strength 5/5 in all extremities. Sensory grossly intact. Normal gait. 11:35 ENT: TM's: are normal, Nose: nasal drainage, and is seen coming from both nares, that is clear, Posterior pharynx: erythema, that is mild, post nasal drainage. Vital Signs: 11:31 BP 136 / 84; Pulse 84; Resp 16; Temp 98.6; Pulse Ox 98% ; Weight 131.54 kg; Height 5 [facility] ft. 11 in. (180.34 cm); Pain 5/10; 13:19 BP 134 / 82; Pulse 82; Resp 18; Pulse Ox 100% ; kr3 11:31 Body Mass Index 40.45 (131.54 kg, 180.34 cm) [facility] MDM: 11:02 Patient medically screened. [facility] 12:50 Differential diagnosis: Allergic rhinitis, group A strep tonsillitis, pharyngitis, 7 upper respiratory infection, viral syndrome. Data reviewed: vital signs, nurses notes. Test considered but Not performed: X-ray: Chest x-ray not performed due to clear lung sounds, normal vital signs, and no complaints of shortness of breath. Care significantly affected by the following chronic conditions: Diabetes. Counseling: I had a detailed discussion with the patient and/or guardian regarding: the historical points, exam findings, and any diagnostic results supporting the discharge/admit diagnosis, to return to the emergency department if symptoms worsen or persist or if there are any questions or concerns that arise at home. 07/14 11:12 Order name: Strep; Complete Time: 12:26 [facility] 07/14 11:12 Order name: COVID-19/FLU A+B; Complete Time: 12:49 [facility] 07/14 12:09 Order name: Throat Culture EDMS Administered Medications: 11:35 Drug: Ketorolac 60 mg Route: IM; Site: right deltoid; kr3 13:20 Follow up: Response: No adverse reaction kr3 Disposition: 16:16 Co-signature as Attending Physician, Kody Jackson MD I reviewed the patient's care rt provided by the Advanced Practice Provider and agree with the diagnosis and treatment plan. Disposition Summary: 07/14/22 12:50 Discharge Ordered Location: Home [facility] Problem: new [facility] Symptoms: are unchanged [facility] Condition: Stable [facility] Diagnosis - Acute upper respiratory infection, unspecified [facility] Followup: [facility] - With: Private Physician - When: 2 - 3 days - Reason: Recheck today's complaints Discharge Instructions: - Discharge Summary Sheet 7 - Upper Respiratory Infection, Adult jh7 - Viral Respiratory Infection [facility] Forms: - Medication Reconciliation Form 7 - Thank You Letter 7 - Work release form kr3 Prescriptions: - Tessalon Perles 100 mg Oral Capsule - take 1 capsule by ORAL route every 8 hours As needed; 15 capsule; Refills: 0, jh7 Product Selection Permitted Signatures: Dispatcher [employer] Emily Hayes RN RN jh5 Jessika Herrera FNP PIPE CLEANING MACHINE OPERATOR jh7 Elisa Tripathi RN RN kr3 Kody Jakcson MD MD rt
--- NOTE | 2022-07-14 12:51 | ER ---
Nurse's Notes [facility] Name: Alexander Justice Age: 21 yrs Sex: Male : 2000 Arrival Date: 07/14/2022 Time: 11:00 Bed 11 Private MD: Diagnosis: Acute upper respiratory infection, unspecified Presentation: 07/14 11:31 Chief complaint: Patient states: yesterday morning my throat started hurting, feels jh5 inflamed and I am coughing up mucus. Also yesterday my back started hurting around 2pm, but I am not having any urinary problems. Coronavirus screen: Vaccine status: Patient reports being unvaccinated. Client denies travel out of the [place] in the last 14 days. Ebola Screen: Patient negative for fever greater than or equal to 101.5 degrees Fahrenheit, and additional compatible Ebola Virus Disease symptoms Patient denies exposure to infectious person. Patient denies travel to an Ebola-affected area in the 21 days before illness onset. Initial Sepsis Screen: Does the patient meet any 2 criteria? No. Patient's initial sepsis screen is negative. Does the patient have a suspected source of infection? No. Patient's initial sepsis screen is negative. Risk Assessment: Do you want to hurt yourself or someone else? Patient reports no desire to harm self or others. 11:31 Method Of Arrival: Ambulatory [facility] 11:31 Acuity: ABIGAIL 3 [facility] 13:18 Onset of symptoms was July 12, 2022. kr3 Triage Assessment: 11:34 General: Appears in no apparent distress. comfortable, well groomed, well developed, [facility] Behavior is calm, cooperative, appropriate for age. Pain: Complains of pain in right side. EENT: Reports pain. Historical: - Allergies: 11:34 NKA; jh5 - PMHx: 11:34 allergies; Diabetes - NIDDM; No longer has DM due to weight loss; Heart Murmur; 5 - Immunization history:: Adult Immunizations up to date. - Social history:: Smoking status: Patient denies any tobacco usage or history of. Screenin:17 [facility] ED Fall Risk Assessment (Adult) History of falling in the last 3 months, kr3 including since admission No falls in past 3 months (0 pts) Confusion or Disorientation No (0 pts) Intoxicated or Sedated No (0 pts) Impaired Gait No (0 pts) Mobility Assist Device Used No (0 pt) Altered Elimination No (0 pt) Score/Fall Risk Level 0 - 2 = Low Risk. Abuse screen: Denies threats or abuse. Nutritional screening: No deficits noted. Tuberculosis screening: No symptoms or risk factors identified. Assessment: 12:14 Reassessment: Patient appears in no apparent distress at this time. Patient and/or kr3 family updated on plan of care and expected duration. Pain level reassessed. Patient is alert, oriented x 3, equal unlabored respirations, skin warm/dry/pink. 13:17 Respiratory: Airway is patent Respiratory effort is even, unlabored. EENT: kr3 13:18 Respiratory: kr3 13:19 EENT: Throat. kr3 Vital Signs: 11:31 BP 136 / 84; Pulse 84; Resp 16; Temp 98.6; Pulse Ox 98% ; Weight 131.54 kg; Height 5 jh5 ft. 11 in. (180.34 cm); Pain 5/10; 13:19 BP 134 / 82; Pulse 82; Resp 18; Pulse Ox 100% ; kr3 11:31 Body Mass Index 40.45 (131.54 kg, 180.34 cm) 5 ED Course: 11:00 Patient arrived in ED. am2 11:01 [facility] jh7 11:01 Kody Jackson MD is Attending Physician. jh7 11:32 Elisa Tripathi, RN is Primary Nurse. kr3 11:34 Triage completed. jh5 11:34 Arm band placed on right wrist. jh5 11:48 COVID-19/FLU A+B Sent. kr3 11:48 Strep Sent. kr3 13:18 No provider procedures requiring assistance completed. Patient did not have IV access kr3 during this emergency room visit. 13:19 Bed in low position. Call light in reach. Side rails up X 1. kr3 Administered Medications: 11:35 Drug: Ketorolac 60 mg Route: IM; Site: right deltoid; kr3 13:20 Follow up: Response: No adverse reaction kr3 Medication: 13:19 VIS not applicable for this client. kr3 Outcome: 12:50 Discharge ordered by . 7 13:18 Discharged to home ambulatory. kr3 13:18 Condition: stable 13:18 Discharge instructions given to patient. 13:20 Patient left the ED. kr3 Signatures: Sujata Alfonso Jessica RN RN jh5 Jessika Herrera FNP FNP jh7 Elisa Tripathi RN RN kr3
[2022-07-14 13:44] VITALS: TEMP 98.6
[2022-07-14 13:45] VITALS: BP 134/82; O2SAT 100
== END 2022-07-14 13:20 | disposition home or self-care (01) ==
LOC: ER 10:52
DX: J06.9 Acute upper respiratory infection, unspecified (principal); Z20.822 Contact with and (suspected) exposure to COVID-19
CPT/HCPCS: 87070; 87081; 0240U; 96372; 99283

== ENCOUNTER 2022-07-16 16:43 | Emergency (ER) | payer BC ==
--- OUTSIDE RECORDS SUMMARY | 2022-07-16 16:46 | XMS REPORT | Continuity of Care Document ---
:2000 Author Organization [facility] t Address [address] [place] [address] Care Team Providers Name Role Phone Unavailable Unavailable Unavailable Payers Payer Name Policy Type Policy Number Effective Date Expiration Date S ource Problems This patient has no known problems. Allergies, Adverse Reactions, Alerts Allergy Allergy Status Severity Reaction(s) Onset Inactive Treating Comm ents Source Name Type Date Date Clinician Unable DA Active U 2020-06 [facility] to 0-01 Assess 00:00: 00 No Known DA Active U 2020-06 [facility] Drug 0-01 Allergie 00:00: s 00 Medications This patient has no known medications. Procedures This patient has no known procedures. Encounters Start End Encounter Admission Attending Care Care Encounter Source Date/Time Date/Time Type Type Clinicians Facility Department ID 2021-03-29 Inpatient [facility] [id number] [facility] 15:53:00 75 2021-03-29 2021-03-29 Emergency [facility] [id number] [facility] 15:53:00 15:53:00 75 Results Test Description Test Time Test Comments Results Result Comments Source UA, Urinalysis Rflx Cult/Sedmt 2021-03-29 16:52:00 Test Item Value Reference Range Interpretation Comme nts Color,Urine (test code = UCOL) Yellow Y Clarity,Urine (test code = UCLAR) Clear Clear PH,Urine (test code = UPH.XX) 7.0 5.5-8.5 Specific [place],Urine (test code = USG) 1.025 1.005-1.030 N [...] = ULEU) Negative cells/uL Negat zaki Drug Screen,[id number] 16:52:00 Test Item Value Reference Range Interpretation [...] (test Negative Negative code = UPROP) Ethanol [id number] 16:31:00 Test Item Value Reference Range Interpretation Comments Ethanol (test code = ETOH) 3 mg/dL Coronavirus PCR, COVID19 [id number] 16:31:00 Test Item Value Reference Range Interpretation Comments Coronavirus PCR, For use under Emergency COVID19 Rapid (test Use Authorization (EUA) code = SARSCOV2) only. Coronavirus PCR, Reference Range: COVID19 Rapid (test Negative code = RKLNMAB83.1) SARS-CoV-2 PCR Result: Negative by PCR (test code = SARS-CoV-2 PCR Result:) COVID-19 Status: AsymptomaticComplete Blood Count Auto [id number] 16:31:00 Test Item Value Reference Range Interpretation [...] code = NRBCP) 0 % Comprehensive Metabolic [id number] 16:31:00 Test Item Value Reference Range Interpretation [...]
--- NOTE | 2022-07-16 16:54 | EDPHYS ---
Physician Documentation [facility] Name: Alexander Justice Age: 21 yrs Sex: Male : 2000 Arrival Date: 07/16/2022 Time: 16:45 Bed Waiting Private MD: ED Physician Nick Edwards HPI: 07/16 17:04 This 21 yrs old Male presents to ER via Unassigned with complaints of Work Release. kb 17:04 Pt states " I was seen here on Thursday and had a note to return to work yesterday. Went kb to work and they sent me home, telling me to come back on Thursday to make sure was good. I need a note to go back on Thursday.". Severity of symptoms: At their worst the symptoms were mild in the emergency department the symptoms are unchanged. The patient has not experienced similar symptoms in the past. The patient has been recently seen at the [facility] Emergency Department. Historical: - Allergies: 17:05 NKA; iw - PMHx: 17:05 allergies; Diabetes - NIDDM; No longer has DM due to weight loss; Heart Murmur; iw ROS: 17:04 Cardiovascular: Negative for chest pain, palpitations, and edema. kb 17:04 Constitutional: Positive for fever. 17:04 Respiratory: Positive for cough. 17:04 All other systems are negative. Exam: 17:04 Constitutional: This is a well developed, well nourished patient who is awake, alert, kb and in no acute distress. Head/Face: Normocephalic, atraumatic. ENT: Moist Mucous membranes Cardiovascular: Regular rate and rhythm with a normal S1 and S2. No gallops, murmurs, or rubs. No pulse deficits. Respiratory: Respirations even and unlabored. No increased work of breathing. Talking in full sentences Skin: Warm, dry with normal turgor. Normal color. MS/ Extremity: Pulses equal, no cyanosis. Neurovascular intact. Full, normal range of motion. Neuro: Awake and alert, GCS 15, oriented to person, place, time, and situation. Moves all extremities. Normal gait. Vital Signs: 17:04 BP 158 / 76; Pulse 110; Resp 16; Temp 99.9; Pulse Ox 97% on R/A; Weight 131.54 kg; iw Height 5 ft. 11 in. (180.34 cm); 17:04 Body Mass Index 40.45 (131.54 kg, 180.34 cm) iw MDM: 16:47 Patient medically screened. kb 17:04 Data reviewed: vital signs, nurses notes. kb 17:05 Counseling: I had a detailed discussion with the patient and/or guardian regarding: the kb historical points, exam findings, and any diagnostic results supporting the discharge/admit diagnosis, the need for outpatient follow up, a family practitioner, to return to the emergency department if symptoms worsen or persist or if there are any questions or concerns that arise at home. Administered Medications: No medications were administered Disposition: 07/17 12:38 Co-signature as Attending Physician, Nick Edwards MD I agree with the assessment and kdr plan of care. Disposition Summary: 07/16/22 16:54 Discharge Ordered Location: Home kb Condition: Stable kb Diagnosis - Encounter for issue of other medical certificate - work note kb Followup: kb - With: Emergency Department - When: As needed - Reason: Worsening of condition Followup: kb - With: Private Physician - When: 2 - 3 days - Reason: Recheck today's complaints, Continuance of care, Re-evaluation by your physician Discharge Instructions: - Discharge Summary Sheet kb Forms: - Work release form kb - Medication Reconciliation Form kb - Thank You Letter kb - Antibiotic Education kb - Prescription Opioid Use kb Signatures: Colleen De Luna, DELL-C DELL-Nick Pa MD MD kdr Williams, Irene, RN RN iw
--- NOTE | 2022-07-16 17:06 | ER ---
Nurse's Notes [facility] Name: Alexander Justice Age: 21 yrs Sex: Male : 2000 Arrival Date: 07/16/2022 Time: 16:45 Bed Waiting Private MD: Diagnosis: Encounter for issue of other medical certificate-work note Presentation: 07/16 17:04 Chief complaint: Patient states: was seen yesterday , needs a note to return Thursday. iw Coronavirus screen: At this time, the client does not indicate any symptoms associated with coronavirus-19. Ebola Screen: Patient negative for fever greater than or equal to 101.5 degrees Fahrenheit, and additional compatible Ebola Virus Disease symptoms Patient denies exposure to infectious person. Patient denies travel to an Ebola-affected area in the 21 days before illness onset. No symptoms or risks identified at this time. Initial Sepsis Screen: Does the patient meet any 2 criteria? No. Patient's initial sepsis screen is negative. Does the patient have a suspected source of infection? No. Patient's initial sepsis screen is negative. Risk Assessment: Do you want to hurt yourself or someone else? Patient reports no desire to harm self or others. Onset of symptoms was July 16, 2022. 17:04 Acuity: ABIGAIL 5 iw 17:04 Method Of Arrival: Ambulatory Historical: - Allergies: 17:05 NKA; iw - PMHx: 17:05 allergies; Diabetes - NIDDM; No longer has DM due to weight loss; Heart Murmur; iw Vital Signs: 17:04 BP 158 / 76; Pulse 110; Resp 16; Temp 99.9; Pulse Ox 97% on R/A; Weight 131.54 kg; iw Height 5 ft. 11 in. (180.34 cm); 17:04 Body Mass Index 40.45 (131.54 kg, 180.34 cm) iw ED Course: 16:45 Patient arrived in ED. rg4 16:47 Colleen De Luna FNP-C [facility]. kb 16:47 Nick Edwards MD is Attending Physician. kb 17:04 Reanna Anderson, RN is Primary Nurse. iw 17:05 Triage completed. iw 17:05 Arm band placed on. iw Administered Medications: No medications were administered Outcome: 16:54 Discharge ordered by . kb 17:05 Patient left the ED. iw Signatures: Colleen De Luna, MARKET DEVELOPMENT MANAGER-C MARKET DEVELOPMENT MANAGER-CkReanna Peck, RN RN Roxanne Benjamin4
[2022-07-16 17:14] VITALS: BP 158/76; TEMP 99.9; O2SAT 97
== END 2022-07-16 17:05 | disposition home or self-care (01) ==
LOC: ER 16:43
DX: Z02.79 Encounter for issue of other medical certificate (principal)
CPT/HCPCS: 99281

== ENCOUNTER 2022-08-15 19:49 | Emergency (ER) | payer BC ==
--- OUTSIDE RECORDS SUMMARY | 2022-08-15 19:52 | XMS REPORT | Continuity of Care Document ---
:2000 Author Organization [facility] t Address [address] [place] [address] Care Team Providers Name Role Phone Unavailable Unavailable Unavailable Payers Payer Name Policy Type Policy Number Effective Date Expiration Date S ource Problems This patient has no known problems. Allergies, Adverse Reactions, Alerts Allergy Allergy Status Severity Reaction(s) Onset Inactive Treating Comm ents Source Name Type Date Date Clinician Unable DA Active U 2020-06 [facility] to 0-01 Assess 00:00: 00 No Known DA Active U 2020-06 [facility] Drug 0-01 Allergie 00:00: s 00 Medications This patient has no known medications. Procedures This patient has no known procedures. Encounters Start End Encounter Admission Attending Care Care Encounter Source Date/Time Date/Time Type Type Clinicians Facility Department ID 2021-03-29 Inpatient [facility] [id number] [facility] 15:53:00 75 2021-03-29 2021-03-29 Emergency [facility] [id number] [facility] 15:53:00 15:53:00 75 Results Test Description Test Time Test Comments Results Result Comments Source UA, Urinalysis Rflx Cult/Sedmt 2021-03-29 16:52:00 Test Item Value Reference Range Interpretation Comme nts Color,Urine (test code = UCOL) Yellow Y Clarity,Urine (test code = UCLAR) Clear Clear PH,Urine (test code = UPH.XX) 7.0 5.5-8.5 Specific [place],Urine (test code = USG) 1.025 1.005-1.030 N [...] = ULEU) Negative cells/uL Negat zaki Drug Screen,[id number] 16:52:00 Test Item Value Reference Range Interpretation [...] (test Negative Negative code = UPROP) Ethanol [id number] 16:31:00 Test Item Value Reference Range Interpretation Comments Ethanol (test code = ETOH) 3 mg/dL Coronavirus PCR, COVID19 [id number] 16:31:00 Test Item Value Reference Range Interpretation Comments Coronavirus PCR, For use under Emergency COVID19 Rapid (test Use Authorization (EUA) code = SARSCOV2) only. Coronavirus PCR, Reference Range: COVID19 Rapid (test Negative code = ZGWBCWA33.1) SARS-CoV-2 PCR Result: Negative by PCR (test code = SARS-CoV-2 PCR Result:) COVID-19 Status: AsymptomaticComplete Blood Count Auto [id number] 16:31:00 Test Item Value Reference Range Interpretation [...] code = NRBCP) 0 % Comprehensive Metabolic [id number] 16:31:00 Test Item Value Reference Range Interpretation [...]
--- NOTE | 2022-08-15 21:32 | RAD REPORT ---
EXAM DESCRIPTION: [place] Single View08/15/2022 8:43 pm CLINICAL HISTORY: SOB COMPARISON: Chest Single View dated 08/26/2020; Chest Pa And Lat (2 Views) dated 07/11/2019; Chest Pa And Lat (2 Views) dated 12/18/2018; Chest Pa And Lat (2 Views) dated 11/21/2018 TECHNIQUE: Portable AP view of the chest. FINDINGS: The lungs are clear. No pneumothorax or effusion. The cardiomediastinal contours are unrem arkable. IMPRESSION: No acute cardiopulmonary process.
[2022-08-15] MEDS ORDERED: ONDANSETRON 4 MG/2 ML VIAL ONE (22:06)
[2022-08-15] MEDS ORDERED: NA CHLORIDE 0.9% 1,000 ML ONE ×2 (22:06→23:47)
[2022-08-15 22:18] LABS: Hematocrit 45.5 % (39.6-49.0); Lymphocytes % 8.6 % (15.3-44.8); MCV 83.5 fL (80-100); MPV 8.7 fL (7.6-11.3); RBC Red Blood Cell Count 5.45 M/uL (4.33-5.43)
[2022-08-15 22:31] LABS: ALT/SGPT 41 U/L (16-61); Albumin 3.6 g/dL (3.4-5.0); Alkaline Phosphatase 43 U/L (45-117); BUN Blood Urea Nitrogen 11 mg/dL (7-18); Bicarbonate 23 mmol/L (21-32); Bilirubin Total 0.7 mg/dL (0.2-1.0); Glomerular Filtration Rate 115 ml/min (=/>90); Glucose Level 207 mg/dL (74-106); Protein, Total 7.8 g/dL (6.4-8.2); Sodium Level 130 mmol/L (136-145)
[2022-08-15 22:32] LABS: Urine Bacteria None Seen /HPF (<20); Urine Mucus 1+ /HPF (None Seen); Urine RBC <5 /HPF (None Seen)
[2022-08-15 22:32] LABS: AST/SGOT 68 U/L (15-37); Bilirubin Direct < 0.1 mg/dL (0-0.2); Magnesium 1.5 mg/dL (1.6-2.4); Potassium 5.1 mmol/L (3.5-5.1)
[2022-08-15 22:59] LABS: SARS-COV-2 RT PCR NEGATIVE (NEGATIVE)
[2022-08-15] MEDS ORDERED: IBUPROFEN 400 MG TAB ONE (23:47)
--- NOTE | 2022-08-16 01:23 | EDPHYS ---
Physician Documentation [facility] Name: Alexander Justice Age: 22 yrs Sex: Male : 2000 Arrival Date: 08/15/2022 Time: 19:50 Bed 10 Private MD: ED Physician Queenie Noriega HPI: 08/15 20:30 This 22 yrs old Male presents to ER via Ambulatory with complaints of Vomiting, Fever, cp Body aches. 20:30 The patient presents to the emergency department with vomiting, 1 times today, cp diarrhea, that is continuous. 20:30 Onset: The symptoms/episode began/occurred this morning. cp 20:30 Possible causes: unknown. cp 20:30 Associated signs and symptoms: Pertinent positives: diarrhea, dysuria, vomiting, cp Pertinent negatives: abdominal pain, constipation, fever, GI bleeding. Severity of symptoms: in the emergency department the symptoms are unchanged despite home interventions. Historical: - Allergies: 20:21 NKA; pf1 - Immunization history:: Adult Immunizations unknown. - Social history:: Smoking status: unknown. ROS: 20:35 Constitutional: Positive for poor PO intake, Negative for fever. cp 20:35 Eyes: Negative for injury, pain, redness, and discharge. cp 20:35 ENT: Negative for drainage from ear(s), ear pain, sore throat, difficulty swallowing, difficulty handling secretions. 20:35 Neck: Negative for stiffness. 20:35 Cardiovascular: Negative for chest pain. 20:35 Respiratory: Positive for slight cough, Negative for shortness of breath. 20:35 Abdomen/GI: Positive for vomiting, diarrhea, Negative for abdominal pain, constipation, hematemesis, black/tarry stool, rectal bleeding. 20:35 : Positive for burning with urination. 20:35 Skin: Negative for cellulitis, rash. 20:35 Neuro: Positive for headache, Negative for altered mental status, dizziness, weakness. 20:35 All other systems are negative. Exam: 20:40 Constitutional: The patient appears in no acute distress, alert, awake, cp non-diaphoretic, non-toxic, well developed, well nourished, obese. 20:40 Head/Face: Normocephalic, atraumatic. cp 20:40 Eyes: Periorbital structures: appear normal, Conjunctiva: normal, no exudate, no injection, Sclera: no appreciated abnormality, Lids and lashes: appear normal, bilaterally. 20:40 ENT: External ear(s): are unremarkable, Ear canal(s): are normal, clear, TM's: bulging, is not appreciated, bilaterally, dullness, bilaterally, erythema, is not appreciated, bilaterally, Nose: is normal, Mouth: Lips: moist, Oral mucosa: moist, Posterior pharynx: Airway: no evidence of obstruction, patent, swelling, is not appreciated, erythema, is not appreciated, exudate, is not appreciated. 20:40 Neck: ROM/movement: is normal, is supple, without pain, no range of motions limitations, no meningismus, Lymph nodes: no appreciated lymphadenopathy. 20:40 Chest/axilla: Inspection: normal. 20:40 Cardiovascular: Rate: tachycardic, Rhythm: regular, Edema: is not appreciated, JVD: is not appreciated. 20:40 Respiratory: the patient does not display signs of respiratory distress, Respirations: normal, no use of accessory muscles, no retractions, labored breathing, is not present, Breath sounds: are clear throughout, no decreased breath sounds, no stridor, no wheezing. 20:40 Abdomen/GI: Inspection: abdomen appears normal, Bowel sounds: active, all quadrants, Palpation: soft, in all quadrants, mild abdominal tenderness, in all quadrants. 20:40 Back: pain, that is very mild, of the mid back area, ROM is normal. 20:40 Skin: cellulitis, no rash present. 20:40 Neuro: Orientation: to person, place \T\ time. Mentation: is normal, Motor: moves all fours, strength is normal, Sensation: is normal. 23:17 ECG was reviewed by the Attending Physician. cp Vital Signs: 20:14 BP 148 / 63; Pulse 133; Resp 19; Temp 99.9; Pulse Ox 97% ; Weight 136.08 kg; Height 5 pf1 ft. 11 in. (180.34 cm); Pain 8/10; 22:37 BP 138 / 83; Pulse 121; Resp 17; Temp 98.5(O); Pulse Ox 95% on R/A; zm 23:57 BP 131 / 76; Pulse 115; Resp 16 S; Temp 99.3(O); Pulse Ox 98% on R/A; bb 02/18 01:37 BP 127 / 63; Pulse 99; Resp 16 S; Temp 99(O); Pulse Ox 97% on R/A; bb 08/15 20:14 Body Mass Index 41.84 (136.08 kg, 180.34 cm) pf1 MDM: 08/15 20:13 Patient medically screened. cp 21:00 Differential diagnosis: Nonspecific abd pain, gastritis, cholecystitis, pancreatitis, cp appendicitis, viral gastroenteritis, gastroenteritis, sepsis, COVID-19, pneumonia. 08/16 01:22 Data reviewed: vital signs, nurses notes, lab test result(s), EKG, radiologic studies, cp CT scan, plain films. 01:22 Consideration of Admission/Observation Escalation of care including cp admission/observation considered. I considered the following discharge prescriptions or medication management in the emergency department Medications were administered in the Emergency Department. See MAR. Independent interpretation of the following test(s) in the Emergency Department EKG: See my EKG interpretation above X-Ray: My interpretation is chest xray negative for infiltrates. Test considered but Not performed: CT: chest. Counseling: I had a detailed discussion with the patient and/or guardian regarding: the historical points, exam findings, and any diagnostic results supporting the discharge/admit diagnosis, the need for outpatient follow up, a family practitioner, to return to the emergency department if symptoms worsen or persist or if there are any questions or concerns that arise at home. Response to treatment: the patient's symptoms have markedly improved after treatment, and as a result, I will discharge patient. 08/15 20:21 Order name: COVID-19/FLU A+B/RSV; Complete Time: 23:23 cp 08/15 20:21 Order name: Strep; Complete Time: 23:23 cp 08/15 20:21 Order name: Basic Metabolic Panel; Complete Time: 23:23 cp 08/15 23:23 Interpretation: Normal except: NA 130; GLUC 207; CA 8.1. cp 08/15 20:21 Order name: CBC with Diff; Complete Time: 23:23 cp 08/15 23:23 Interpretation: Normal except: WBC 11.90; RBC 5.45; DARIELA% 82.2; LYM% 8.6; NEUT A 9.7. 08/15 20:21 Order name: LFT's; Complete Time: 23:23 cp 08/16 01:20 Interpretation: Normal except: AST 68; ALK 43; GLOB 4.2; A/G 0.9. cp 08/15 20:21 Order name: Magnesium; Complete Time: 23:23 cp 08/15 20:21 Order name: XRAY Chest (1 view); Complete Time: 21:51 cp 08/15 21:51 Interpretation: Report review. 08/15 20:21 Order name: Lactate w/ 2H reflex if indic.; Complete Time: 23:23 cp 08/15 20:21 Order name: Urine Microscopic Only; Complete Time: 23:23 cp 08/15 22:52 Order name: Throat Culture EDNH 08/15 23:24 Order name: CT Abd/Pelvis - IV Contrast Only cp 08/15 20:21 Order name: EKG; Complete Time: 20:21 cp 08/15 20:21 Order name: EKG - Nurse/Tech; Complete Time: 23:13 cp 08/15 20:21 Order name: IV Saline Lock; Complete Time: 22:51 cp 08/15 20:21 Order name: Labs collected and sent; Complete Time: 22:51 cp 08/15 20:21 Order name: O2 Per Protocol; Complete Time: 22:51 cp 08/15 20:21 Order name: O2 Sat Monitoring; Complete Time: 22:51 cp 08/15 20:21 Order name: Urine Dipstick-Ancillary (obtain specimen); Complete Time: 23:02 cp EC/17 23:17 Rate is 115 beats/min. Rhythm is regular. TX interval is normal. QRS interval is cp prolonged at 112 msec. QT interval is normal. T waves are Inverted in lead aVR. Interpreted by me. Reviewed by me. Administered Medications: 22:40 Drug: Zofran (Ondansetron) 4 mg Route: IVP; Site: left antecubital; bb 23:51 Follow up: Response: No adverse reaction bb 22:40 Drug: NS 0.9% 1000 ml Route: IV; Rate: 1 bolus; Site: left antecubital; bb 23:51 Follow up: IV Status: Completed infusion; IV Intake: 950ml bb 23:51 Drug: NS 0.9% 1000 ml Route: IV; Rate: 1 bolus; Site: left antecubital; bb 08/16 01:36 Follow up: IV Status: Completed infusion; IV Intake: 950ml bb 08/15 23:51 Drug: Ibuprofen 800 mg Route: PO; 08/16 01:36 Follow up: Response: No adverse reaction 08/15 23:51 CANCELLED (Duplicate Order): Ibuprofen 800 mg PO once 08/16 01:22 CANCELLED (Physician Discretion): NS 0.9% 1000 ml IV at 1 bolus Per protocol; 1000 mL cp bolus Disposition Summary: 08/16/22 01:23 Discharge Ordered Location: Home cp Problem: new cp Symptoms: have improved cp Condition: Stable cp Diagnosis - Vomiting cp - Diarrhea, unspecified cp Followup: cp - With: Private Physician - When: 2 - 3 days - Reason: Worsening of condition Discharge Instructions: - Discharge Summary Sheet cp - Food Choices to Help Relieve Diarrhea, Adult cp - Diarrhea, Adult cp - Vomiting, Adult cp Forms: - Medication Reconciliation Form cp - Thank You Letter cp - Antibiotic Education cp - Prescription Opioid Use cp Prescriptions: - Zofran 4 mg Oral Tablet - take 1 tablet by ORAL route every 12 hours As needed; 20 tablet; Refills: 0, cp Product Selection Permitted - dicyclomine 20 mg Oral Tablet - take 1 tablet by ORAL route 4 times per day; 20 tablet; Refills: 0, Product cp Selection Permitted Addendum: 08/17/2022 06:18 I reviewed the patient's care provided by the Advanced Practice Provider and agree with s d2 the diagnosis and treatment plan. Signatures: Dispatcher [employer] EDMS Faustina Hinton RN RN bb Page, Corey, PA PA cp Queenie Noriega MD MD sd2 Lucy koehler RN RN pf1 Corrections: (The following items were deleted from the chart) 08/15 23:21 20:21 Cardiac monitoring ordered. cp 23:51 23:41 Ibuprofen 800 mg PO once ordered. cp 08/16 01:22 01:20 NS 0.9% 1000 ml IV at 1 bolus Per protocol; 1000 mL bolus ordered. cp cp
--- NOTE | 2022-08-16 01:23 | ER ---
Nurse's Notes [facility] Name: Alexander Justice Age: 22 yrs Sex: Male : 2000 Arrival Date: 08/15/2022 Time: 19:50 Bed 10 Private MD: Diagnosis: Vomiting;Diarrhea, unspecified Presentation: 08/15 20:14 Chief complaint: Patient states: body aches pain of 8, fever of highest temp 101.7F pf1 with vomiting x 1 episode,onset this AM. Patient stated also alfaro with urination,onset 3 hours ago. Coronavirus screen: Vaccine status: Patient reports being unvaccinated. Client denies travel out of the [place] in the last 14 days. Client presents with at least one sign or symptom that may indicate coronavirus-19. Standard/surgical mask placed on the client. Ebola Screen: Patient negative for fever greater than or equal to 101.5 degrees Fahrenheit, and additional compatible Ebola Virus Disease symptoms. Initial Sepsis Screen: Does the patient meet any 2 criteria? No. Patient's initial sepsis screen is negative. Does the patient have a suspected source of infection? No. Patient's initial sepsis screen is negative. Risk Assessment: Do you want to hurt yourself or someone else? Patient reports no desire to harm self or others. 20:14 Method Of Arrival: Ambulatory pf1 20:14 Acuity: ABIGAIL 3 pf1 20:22 Chief complaint: Patient stated took Tylenol 1000mg at 1830. pf1 Historical: - Allergies: 20:21 NKA; pf1 - Immunization history:: Adult Immunizations unknown. - Social history:: Smoking status: unknown. Screenin:40 [facility] ED Fall Risk Assessment (Adult) History of falling in the last 3 months, bb including since admission No falls in past 3 months (0 pts). Abuse screen: Denies threats or abuse. Nutritional screening: No deficits noted. Tuberculosis screening: No symptoms or risk factors identified. Assessment: 22:40 General: Appears in no apparent distress. obese, Behavior is calm, cooperative. Pain: bb Complains of pain in all over. Neuro: Level of Consciousness is awake, alert, obeys commands, Oriented to person, place, time, situation. Cardiovascular: Capillary refill < 3 seconds Patient's skin is warm and dry. Respiratory: Respiratory effort is even, unlabored, Respiratory pattern is regular. GI: Abdomen is obese. Derm: Skin is pink, warm \T\ dry. Musculoskeletal: Circulation, motion, and sensation intact. 23:54 Reassessment: Patient is alert, oriented x 3, equal unlabored respirations, skin bb warm/dry/pink. awaiting diagnostic results IV site intact, patent with fluids infusing. 23:58 Reassessment: pt to CT scan via wheelchair accompanied by interactive video technician. 08/16 01:36 Reassessment: Patient is alert, oriented x 3, equal unlabored respirations, skin bb warm/dry/pink. pt verbalized understanding of and agrees to plan of care discharge instructions given pt ambulated with steady gait to exit. Vital Signs: 08/15 20:14 BP 148 / 63; Pulse 133; Resp 19; Temp 99.9; Pulse Ox 97% ; Weight 136.08 kg; Height 5 pf1 ft. 11 in. (180.34 cm); Pain 8/10; 22:37 BP 138 / 83; Pulse 121; Resp 17; Temp 98.5(O); Pulse Ox 95% on R/A; zm 23:57 BP 131 / 76; Pulse 115; Resp 16 S; Temp 99.3(O); Pulse Ox 98% on R/A; bb 08/16 01:37 BP 127 / 63; Pulse 99; Resp 16 S; Temp 99(O); Pulse Ox 97% on R/A; bb 08/15 20:14 Body Mass Index 41.84 (136.08 kg, 180.34 cm) pf1 ED Course: 08/15 19:50 Patient arrived in ED. mr 19:52 Abraham Boone PA is PHCP. cp 19:52 Queenie Noriega MD is Attending Physician. cp 20:21 Triage completed. pf1 20:45 XRAY Chest (1 view) In Process Unspecified. EDMS 22:20 Inserted saline lock: 20 gauge in left antecubital area, using aseptic technique. Blood oe collected. 22:40 Patient has correct armband on for positive identification. Call light in reach. bb 22:50 Faustina Hinton, [place] is Primary Nurse. bb 08/16 00:22 CT Abd/Pelvis - IV Contrast Only In Process Unspecified. EDMS 01:38 No provider procedures requiring assistance completed. IV discontinued, intact, bb bleeding controlled, No redness/swelling at site. Pressure dressing applied. Administered Medications: 08/15 22:40 Drug: Zofran (Ondansetron) 4 mg Route: IVP; Site: left antecubital; bb 23:51 Follow up: Response: No adverse reaction bb 22:40 Drug: NS 0.9% 1000 ml Route: IV; Rate: 1 bolus; Site: left antecubital; bb 23:51 Follow up: IV Status: Completed infusion; IV Intake: 950ml bb 23:51 Drug: NS 0.9% 1000 ml Route: IV; Rate: 1 bolus; Site: left antecubital; bb 08/16 01:36 Follow up: IV Status: Completed infusion; IV Intake: 950ml bb 08/15 23:51 Drug: Ibuprofen 800 mg Route: PO; bb 08/16 01:36 Follow up: Response: No adverse reaction bb 08/15 23:51 CANCELLED (Duplicate Order): Ibuprofen 800 mg PO once bb 08/16 01:22 CANCELLED (Physician Discretion): NS 0.9% 1000 ml IV at 1 bolus Per protocol; 1000 mL cp bolus Medication: 08/15 22:40 VIS not applicable for this client. bb Intake: 23:51 IV: 950ml; Total: 950ml. bb 08/16 01:36 IV: 950ml; Total: 1900ml. bb Outcome: 01:23 Discharge ordered by . cp 01:38 Discharged to home ambulatory. bb 01:38 Condition: stable 01:38 Discharge instructions given to patient, Instructed on discharge instructions, follow up and referral plans. medication usage, Demonstrated understanding of instructions, follow-up care, medications, Prescriptions given X 2. 01:39 Patient left the ED. bb Signatures: Dispatcher [employer] Miley Gupta Brenda RN RN bb Abraham Boone PA PA cp Espinosa, Orlando oe Martinez, Zaina zm finley, Pamala, [place] RN pf1
[2022-08-16 02:17] VITALS: BP 127/63; TEMP 99; O2SAT 97
--- NOTE | 2022-08-18 11:48 | RAD REPORT ---
EXAM DESCRIPTION: CT - Abdomen Pelvis W Contrast - 08/16/2022 6:38 am CLINICAL HISTORY: The patient is 22 years old and is Male; dysuria, vomiting, fever [facility] MAIN TECHNIQUE: Axial computed tomography images of the abdomen and pelvis with intravenous contrast. S agittal and coronal reformatted images were created and reviewed. This CT exam was performed using one or more of the following dose reduction techniques: automated exposure control, adjustment of t he mA and/or kV according to patient size, and/or use of iterative reconstruction technique. COMPARISON: No relevant prior studies available. FINDINGS: LUNG BASES: Unremarkable. No mass. No consolidation. ABDOMEN: LIVER: Hepatomegaly with severe hepatic steatosis. GALLBLADDER AND BILE DUCTS: Unremarkable. No calcified stones. No ductal dilation. PANCREAS: Unremarkable. No mass. No ductal dilation. SPLEEN: Unremarkable. No splenomegaly. ADRENALS: Unremarkable. No mass. KIDNEYS AND URETERS: Unremarkable. No solid mass. No hydronephrosis. STOMACH AND BOWEL: Air-fluid level demonstrated throughout the colon, nonspecific but suggesting d iarrheal illness. No obstruction. No mucosal thickening. PELVIS: APPENDIX: No findings to suggest acute appendicitis. BLADDER: Unremarkable. No mass. REPRODUCTIVE: Unremarkable as visualized. ABDOMEN and PELVIS: INTRAPERITONEAL SPACE: Unremarkable. No free air. No significant fluid collection. BONES/JOINTS: No acute fracture. No dislocation. SOFT TISSUES: Tiny fat-containing umbilical and supraumbilical midline hernias. VASCULATURE: Unremarkable. No abdominal aortic aneurysm. LYMPH NODES: Unremarkable. No enlarged lymph nodes. IMPRESSION: 1. Air-fluid level demonstrated throughout the colon, nonspecific but suggesting diarr heal illness. 2. Otherwise, no acute abnormality within the abdomen or pelvis. 3. Hepatomegaly with severe hepatic steatosis. Clinical correlation with liver function tests recom mended. Electronically signed by: Roberto Pompa MD 08/16/2022 12:46 AM OPTOMECHANICAL ENGINEER Due to temporary technical issues with the PACS/Fluency reporting system, reports are being signed by the in house radiologists without review as a courtesy to insure prompt reporting. The interpreting radiologist is fully responsible for the content of the report.
--- NOTE | 2022-08-18 12:44 | EKG ---
Test Date: 2022-08-15 Test Time: 23:11:09 Field Return Repairer: JAVIER MEASUREMENT RESULTS: Intervals: Rate: 115 NE: 120 QRSD: 112 QT: 328 QTc: 453 Reasnor: P: 42 NE: 120 QRS: -43 T: 44 INTERPRETIVE STATEMENTS: Sinus tachycardia Left axis deviation Pulmonary disease pattern Incomplete right bundle branch block Abnormal ECG Compared to ECG 08/22/2018 17:07:04 Left-axis deviation now present Sinus rhythm no longer present Atrial premature complex(es) no longer present Aberrant conduction of supraventricular beat(s) no longer present Electronically Signed On 08-18-22 12:37:51 PIG LEAD MELTER HELPER by Luis Goodman
== END 2022-08-16 01:39 | disposition home or self-care (01) ==
LOC: ER 19:49
DX: R11.10 Vomiting, unspecified (principal); R19.7 Diarrhea, unspecified; Z20.822 Contact with and (suspected) exposure to COVID-19
CPT/HCPCS: 96361; 93005; 87070; 85025; 80048; 36415; 83735; 80076; 87081; 83605; 81015; 0241U; 74177; 71045; 96374; 99284; Q9967; J7030 ×2; J2405

== ENCOUNTER 2024-02-08 12:58 | Emergency (ER) | payer SELFPAY ==
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
[2024-02-08] MEDS ORDERED: ACETAMINOPHEN 325 MG TABLET ONE (13:34)
[2024-02-08] MEDS ORDERED: KETOROLAC 30 MG/ML INJ ONE (13:34)
[2024-02-08] MEDS ORDERED: NA CHLORIDE 0.9% 1,000 ML ONE (13:34)
--- NOTE | 2024-02-08 14:29 | RAD REPORT ---
EXAM DESCRIPTION: Kev Single View02/08/2024 2:06 pm CLINICAL HISTORY: Fever COMPARISON: 2022 FINDINGS: The lungs appear clear of acute infiltrate. The heart is normal size IMPRESSION: No acute abnormalities displayed
[2024-02-08 14:34] LABS: SARS-CoV-2 Antigen CONTROL BLUE LINE VIS/BG OK
[2024-02-08 14:35] LABS: SARS-CoV-2 Antigen Rapid Res Positive (Negative)
--- NOTE | 2024-02-08 14:55 | ER ---
Nurse's Notes [facility] Name: Alexander Justice Age: 23 yrs Sex: Male : 2000 Arrival Date: 02/08/2024 Time: 12:58 Bed 19 Private MD: Diagnosis: SARS-associated coronavirus as the cause of diseases classified elsewhere;Fever, unspecified Presentation: 02/07 13:15 Chief complaint: Patient states: Cough and sore throat onset yesterday. Pt reports that cm10 today he woke up with headache, bodyaches and back pain that is worse with movement. Coronavirus screen: Client denies travel out of the [place] in the last 14 days. Ebola Screen: Patient denies travel to an Ebola-affected area in the 21 days before illness onset. No symptoms or risks identified at this time. Initial Sepsis Screen: Does the patient meet any 2 criteria? HR > 90 bpm. Does the patient have a suspected source of infection? No. Patient's initial sepsis screen is negative. Risk Assessment: Do you want to hurt yourself or someone else? Patient reports no desire to harm self or others. Onset of symptoms was February 08, 2024. 13:15 Method Of Arrival: Ambulatory cm10 13:15 Acuity: ABIGAIL 3 cm10 Triage Assessment: 13:18 General: Appears in no apparent distress. ill, Behavior is calm, cooperative. Neuro: No cm10 deficits noted. Level of Consciousness is awake, alert, obeys commands, Oriented to person, place, time, situation, Appropriate for age. Respiratory: No deficits noted. Airway is patent Respiratory effort is even, unlabored, Respiratory pattern is regular, symmetrical. Historical: - Allergies: 13:17 NKA; cm10 - PMHx: 13:17 allergies; Diabetes - NIDDM; No longer has DM due to weight loss; Heart Murmur; cm10 - Immunization history:: Adult Immunizations up to date. - Infectious Disease History:: Denies. - Social history:: Smoking status: Reported history of juuling and/or vaping. - Family history:: not pertinent. - Hospitalizations: : No recent hospitalization is reported. Screenin:17 [facility] ED Fall Risk Assessment (Adult) History of falling in the last 3 months, kj2 including since admission No falls in past 3 months (0 pts) Confusion or Disorientation No (0 pts) Intoxicated or Sedated No (0 pts) Impaired Gait No (0 pts) Mobility Assist Device Used No (0 pt) Altered Elimination No (0 pt) Score/Fall Risk Level 0 - 2 = Low Risk Maintained a safe environment, Hourly rounding (assess needs \T\ fall precautionary measures) done. Abuse screen: Denies threats or abuse. Denies injuries from another. Nutritional screening: No deficits noted. Tuberculosis screening: No symptoms or risk factors identified. Assessment: 14:14 General: Appears in no apparent distress. uncomfortable, Behavior is calm, cooperative. kj2 Pain: Complains of pain in generalized Pain currently is 7 out of 10 on a pain scale. Neuro: Level of Consciousness is awake, alert, obeys commands, Oriented to person, place, time, situation. Cardiovascular: Patient's skin is warm and dry. Respiratory: Airway is patent Respiratory effort is unlabored. GI: Reports diarrhea. : No deficits noted. Vital Signs: 13:15 BP 145 / 99; Pulse 113; Resp 19; Temp 98.8; Pulse Ox 97% on R/A; Weight 133.36 kg; cm10 Height 5 ft. 11 in. ; Pain 9/10; 14:14 BP 150 / 97; kj2 13:15 Body Mass Index 41.00 (133.36 kg, 180.34 cm) cm10 13:15 Pain Scale: Adult cm10 ED Course: 13:02 Patient arrived in ED. im 13:07 Jesus Her MD is Attending Physician. rn 13:17 Triage completed. cm10 13:18 Arm band placed on Patient placed in an exam room, on a stretcher, on pulse oximetry. cm10 14:03 Kristi Ching, CHEVY is Primary Nurse. kj2 14:08 XRAY Chest (1 view) In Process Unspecified. EDMS 14:16 No provider procedures requiring assistance completed. Inserted saline lock: 20 gauge kj2 in right antecubital area, using aseptic technique. Blood collected. Flushed with 10 mL NS. 15:15 Patient has correct armband on for positive identification. Bed in low position. Call kj2 light in reach. Adult w/ patient. Provided Education on: call light, fall precautions. 15:15 IV discontinued, intact, bleeding controlled, No redness/swelling at site. Pressure kj2 dressing applied. Administered Medications: 13:46 Drug: Acetaminophen PO 650 mg PO once Route: PO; kj2 14:13 Follow up: Response: No adverse reaction; Pain is decreased kj2 14:13 Drug: NS 0.9% IV 1000 ml IV at 1000 ml once Route: IV; Rate: 1000 ml; Site: right kj2 antecubital; 14:13 Drug: Ketorolac IVP 15 mg IVP once Route: IVP; Site: right antecubital; kj2 Medication: 14:18 VIS not applicable for this client. kj2 Outcome: 14:54 Discharge ordered by . rn 15:15 Discharged to home ambulatory, with family, kj2 15:15 Condition: stable 15:15 Discharge instructions given to Instructed on discharge instructions, follow up and referral plans. 15:16 Patient left the ED. db Signatures: Dispatcher [employer] Jesus Holley MD MD rn Benton, Danielle, RN RN db Leora Soliz Clarissa, RN RN cm10 Kristi Ching RN RN kj2
--- NOTE | 2024-02-08 14:55 | EDPHYS ---
Physician Documentation [facility] Name: Alexander Justice Age: 23 yrs Sex: Male : 2000 Arrival Date: 02/08/2024 Time: 12:58 Bed 19 Private MD: ED Physician Jesus Her HPI: 02/07 13:35 This 23 yrs old Male presents to ER via Ambulatory with complaints of Flu Symptoms. rn 13:35 The patient or guardian reports cough, flu symptoms. Onset: The symptoms/episode rn began/occurred yesterday. Severity of symptoms: At their worst the symptoms were mild, in the emergency department the symptoms are unchanged. Modifying factors: The symptoms are alleviated by nothing, the symptoms are aggravated by nothing. The patient has not experienced similar symptoms in the past. The patient has not recently seen a physician. + fever/chills/cough/myalgias for 1 day. No sick contacts. No abd pain/vomiting/diarrhea. . Historical: - Allergies: 13:17 NKA; cm10 - PMHx: 13:17 allergies; Diabetes - NIDDM; No longer has DM due to weight loss; Heart Murmur; cm10 - Immunization history:: Adult Immunizations up to date. - Infectious Disease History:: Denies. - Social history:: Smoking status: Reported history of juuling and/or vaping. - Family history:: not pertinent. - Hospitalizations: : No recent hospitalization is reported. ROS: 13:35 Constitutional: + fever/chills ENT: + sore throat Cardiovascular: Negative for chest rn pain, palpitations, and edema, Respiratory: + cough Abdomen/GI: Negative for abdominal pain, nausea, vomiting, diarrhea, and constipation, Back: + back pain and myalgias Neuro: Negative for numbness, tingling, and seizure, Exam: 14:53 Constitutional: This is a well developed, well nourished patient who is awake, alert, rn and in no acute distress. ENT: Dry mucous membranes, no stridor Cardiovascular: Regular rate and rhythm. No pulse deficits. Respiratory: No increased work of breathing, no retractions or nasal flaring. MS/ Extremity: Pulses equal, no cyanosis. Neurovascular intact. Full, normal range of motion. Equal circumference. Vital Signs: 13:15 BP 145 / 99; Pulse 113; Resp 19; Temp 98.8; Pulse Ox 97% on R/A; Weight 133.36 kg; cm10 Height 5 ft. 11 in. ; Pain 9/10; 14:14 BP 150 / 97; kj2 13:15 Body Mass Index 41.00 (133.36 kg, 180.34 cm) cm10 13:15 Pain Scale: Adult cm10 MDM: 13:07 Patient medically screened. rn 14:53 Differential Diagnosis: Influenza Upper Respiratory Infection Viral Syndrome Other rn COVID. Data reviewed: vital signs, nurses notes, lab test result(s), radiologic studies, plain films, and as a result, I will discharge patient. Counseling: I had a detailed discussion with the patient and/or guardian regarding the historical points, exam findings, and any diagnostic results supporting the discharge/admit diagnosis, lab results, radiology results, the need for outpatient follow up, to return to the emergency department if symptoms worsen or persist or if there are any questions or concerns that arise at home. Special discussion: I discussed with the patient/guardian in detail that at this point there is no indication for admission to the hospital. It is understood, however, that if the symptoms persist or worsen the patient needs to return immediately for re-evaluation. 02/07 13:21 Order name: SARS RAPID; Complete Time: 14:48 rn 02/07 13:21 Order name: Flu; Complete Time: 14:48 rn 02/07 13:21 Order name: Strep rn 02/07 14:38 Order name: Throat Culture EDMS 02/07 13:21 Order name: XRAY Chest (1 view); Complete Time: 14:48 rn 02/07 13:21 Order name: IV Start; Complete Time: 14:14 rn Administered Medications: 13:46 Drug: Acetaminophen PO 650 mg PO once Route: PO; kj2 14:13 Follow up: Response: No adverse reaction; Pain is decreased kj2 14:13 Drug: NS 0.9% IV 1000 ml IV at 1000 ml once Route: IV; Rate: 1000 ml; Site: right kj2 antecubital; 14:13 Drug: Ketorolac IVP 15 mg IVP once Route: IVP; Site: right antecubital; kj2 Disposition Summary: 02/08/24 14:54 Discharge Ordered Notes: Location: Home rn Problem: new rn Symptoms: have improved rn Condition: Stable rn Diagnosis - SARS-associated coronavirus as the cause of diseases classified elsewhere rn - Fever, unspecified rn Followup: rn - With: Private Physician - When: As needed - Reason: Recheck today's complaints, Re-evaluation by your physician Discharge Instructions: - Discharge Summary Sheet rn - COVID-19 rn - 10 Things You Can Do to Manage Your COVID-19 Symptoms at Home - [facility] (01/11/2021) rn - Viral Illness, Adult rn Forms: - Medication Reconciliation Form rn - Antibiotic service learning coordinator - Prescription Opioid Use rn - Patient Portal Instructions rn - Leadership Thank You Letter rn - Work release form aa5 Signatures: Dispatcher [employer] Jesus Holley MD MD rn Martinez, Clarissa RN RN cm10 Kristi Ching RN RN kj2
[2024-02-08 15:42] VITALS: TEMP 98.8; O2SAT 97
[2024-02-08 15:43] VITALS: BP 150/97
== END 2024-02-08 15:16 | disposition home or self-care (01) ==
LOC: ER 12:58
DX: U07.1 COVID-19 (principal)
CPT/HCPCS: 36415; 71045; 87070; 87081; 87804; 87811; 96374; 99284; J7030

== ENCOUNTER 2024-06-24 18:49 | Emergency (ER) | payer SELFPAY ==
--- OUTSIDE RECORDS SUMMARY | 2024-06-24 18:57 | XMS REPORT | Continuity of Care Document ---
Author Name Unknown Address [address] [facility]. [address] [place] [address] [facility] Address [address] [facility] [place] [address] Care Team Providers Care Java Programmer Analyst Name Role Phone Unavailable Unavailable Unavailable Payers Payer Name Policy Type Policy Number Effective Date Expirati on Date Source Allergies, Adverse Reactions, Alerts Allergy Name Allergy Type Status Severity Reaction(s) Onset Date Inactive Date Treating Clinician Comments Source Unable to Assess DA Active U 2020-06 0 00:00: 00 [facility] No Known Drug Allergie s DA Active U 2020-06 0 00:00: 00 [facility] Encounters Start Date/Time End Date/Time Encounter Type Admission Type Attending [facility] Care Facility Care Department Encounter ID Source 2021-03-29 15:53:00 Inpatient [facility] [id number] [address] [place] [address] 2021-03-29 15:53:00 2021-03-29 15:53:00 Emergency [facility] [id number] [address] [place] [address] Results Test Description Test Time Test Comments Results Result Co mments Source Drug Screen,[id number] 16:52:00* Test Item Value Reference Range Interpretation [...] test code = UPROP) Negative Negative Ethanol [id number] 16:31:00* Test Item Value Reference Range Interpretation Comme nts Ethanol (test code = ETOH) 3 mg/dL Coronavirus PCR, COVID19 [id number] 16:31:00* Test Item Value Reference Range Interpretation Comme nts Coronavirus PCR, COVID19 Rapid (test code = SARSCOV2) For use under Emergency Use Authorization (EUA) only. Coronavirus PCR, COVID19 Rapid (test code = TILDHCP45.1) Reference Range: Negative SARS-CoV-2 PCR Result: (test code = SARS-CoV-2 PCR Result:) Negative by PCR COVID-19 Status: AsymptomaticComplete Blood Count Auto [id number] 16:31:00* Test Item Value Reference Range Interpretation [...] code = NRBCP) 0 % Comprehensive Metabolic [id number] 16:31:00* Test Item Value Reference Range Interpretation [...]
[2024-06-24] MEDS ORDERED: ONDANSETRON 4 MG/2 ML VIAL ONE (19:30)
[2024-06-24] MEDS ORDERED: NA CHLORIDE 0.9% 1,000 ML ONE ×2 (19:30→21:45)
[2024-06-24] MEDS ORDERED: KETOROLAC 30 MG/ML INJ ONE (19:30)
[2024-06-24] MEDS ORDERED: PANTOPRAZOLE 40 MG INJ ONE (19:30)
[2024-06-24 19:33] LABS: Absolute Eosinophils 0.1 K/uL (0-0.5); Absolute Lymphocytes (CBC) 1.6 K/uL (0.7-4.9); Absolute Monocytes 0.7 K/uL (0.1-1.3); Absolute Neutrophil 15.1 K/uL (1.8-8.0); Basophils % 0.2 % (0-1.3); Eosinophils % 0.5 % (0-4.4); Hematocrit 48.5 % (39.6-49.0); Hemoglobin 16.2 g/dL (13.6-17.9); Lymphocytes % 9.1 % (15.3-44.8); MCH 27.5 pg (27.0-35.0); MCHC 33.3 g/dL (32.0-36.0); MCV 82.5 fL (80-100); MPV 8.5 fL (7.6-11.3); Monocytes % 4.1 % (3.3-12.3); Neutrophils % 86.1 % (41.7-73.7); Nucleated Red Blood Cells % 0.1 % (0-0); Platelets 235 thou/uL (152-406); RBC Red Blood Cell Count 5.88 M/uL (4.33-5.43); Red Cell Distribution Width 12.9 % (12.1-15.2)
[2024-06-24 19:49] LABS: Albumin 3.5 g/dL (3.4-5.0); Albumin/Globulin Ratio 0.8 (1.1-1.8); Anion Gap 7.8 mEq/L (5.0-15.0); Bilirubin Total 0.5 mg/dL (0.2-1.0); Globulin 4.2 g/dL (2.3-3.5); Potassium 3.8 mEq/L (3.5-5.1); Protein, Total 7.7 g/dL (6.4-8.2)
--- NOTE | 2024-06-24 20:31 | RAD REPORT ---
EXAMINATION: CT Abdomen Pelvis W Contrast CLINICAL INDICATION: Male, 23 years old. upper abdomen pain TECHNIQUE: CT abdomen and pelvis was performed, after the administration of IV contrast, as per [facility] protocol. Axial, sagittal and coronal reconstructions were obtained. One or more of the following dose reduction techniques were used: Automated exposure control, adjustment of the mA and k V according to patient size, and iterative reconstruction. Unless otherwise specified, incidental findings do not require dedicated imaging follow-up. COMPARISON: 08/15/2022 FINDINGS: LOWER CHEST: The visualized lung bases are clear. LIVER: Significant fatty liver with hepatomegaly present. No focal lesion or biliary dilitation. BILIARY SYSTEM: No suspicious abnormalities. SPLEEN: Normal size. No focal lesion. PANCREAS: No mass, ductal dilation, or hemanth-pancreatic fluid. ADRENALS: Normal; no mass. KIDNEYS: Normal size and contour. No hydronephrosis. URINARY BLADDER: Unremarkable. GASTROINTESTINAL TRACT: No evidence of free air, significant intra-abdominal free fluid, bowel obstru ction or abscess. APPENDIX: Normal appendix. LYMPH NODES: No lymphadenopathy. MUSCULOSKELETAL: No acute or suspicious osseous abnormality. ADDITIONAL FINDINGS: None. IMPRESSION: Pronounced hepatic parenchymal hypoattenuation suggesting steatosis. No other acute or concerning abnormalities seen in the abdomen or pelvis.
[2024-06-24 20:36] LABS: Blood Morphology Comment NOT SEEN (NOT SEEN); Platelet Estimate ADEQ; White Blood Cell Scan OK (OK)
--- NOTE | 2024-06-24 20:47 | RAD REPORT ---
EXAMINATION: ONE VIEW CHEST XR CLINICAL INDICATION: Male, 23 years old.,vomiting, upper abdomen pain TECHNIQUE: Frontal chest projection is submitted. Examination is limited by patient positioning and t echnique. COMPARISON: 02/08/2024. FINDINGS: The lungs are clear. No pneumothorax or sizable effusion. The heart is normal in size. Mediastinal c ontours are unremarkable. IMPRESSION: No acute intrathoracic abnormalities.
[2024-06-24 21:24] LABS: Sqamous Epithelial None Seen /HPF (None Seen); Urine Bacteria None Seen /HPF (<20); Urine Bilirubin NEGATIVE (Negative); Urine Blood Negative (Negative); Urine Clarity Clear (Clear); Urine Color Light-Yellow (Yellow); Urine Culture Reflex Order NOT NEEDED; Urine Glucose 4+ (Negative); Urine Ketones NEGATIVE (Negative); Urine Microscopic Reflex YN ORDER UMIC; Urine Mucus Slight /HPF (None Seen); Urine Nitrite NEGATIVE (Negative); Urine Protein 1+ (Negative); Urine RBC <5 /HPF (None Seen); Urine Urobilinogen Normal (Normal); Urine WBC <5 /HPF (<5); Urine Yeast (Budding) Trace /HPF (None Seen)
[2024-06-24 21:25] LABS: Specific Gravity > 1.030 (1.005-1.030)
[2024-06-24] MEDS ORDERED: LIDOCAINE VISCOUS 2% 10ML ORAL SOLN ONE (21:54)
[2024-06-24] MEDS ORDERED: MAGNES/ALUMIN/SIMET 30ML UCUP ONE (21:54)
[2024-06-24] MEDS ORDERED: FAMOTIDINE 20 MG/2 ML VIAL IV ONE (21:55)
[2024-06-24] MEDS ORDERED: DIPHENHYDRAMINE 50 MG/ML VIAL ONE (22:15)
[2024-06-24] MEDS ORDERED: METOCLOPRAMIDE 10 MG/2mL INJ ONE (22:16)
--- NOTE | 2024-06-24 23:08 | EDPHYS ---
Physician Documentation [facility] Name: Alexander Justice Age: 23 yrs Sex: Male : 2000 Arrival Date: 06/24/2024 Time: 18:49 Bed 20 Private MD: ED Physician Abraham eHredia HPI: 06/24 19:20 This 23 yrs old Male presents to ER via Ambulatory with complaints of Abdominal Pain, cp Vomiting. 19:20 The patient presents with abdominal pain in the upper abdomen. Onset: The cp symptoms/episode began/occurred today. Associated signs and symptoms: Pertinent positives: anorexia, vomiting, Pertinent negatives: constipation, diarrhea, fever, vomiting blood. The symptoms are described as constant. Severity of pain: in the emergency department the pain is unchanged despite home interventions. Historical: - Allergies: 19:02 No Known Allergies; db - PMHx: 19:02 allergies; Diabetes - NIDDM; No longer has DM due to weight loss; Heart Murmur; db - Immunization history:: Adult Immunizations unknown. - Infectious Disease History:: Denies. - Social history:: Smoking status: Reported history of juuling and/or vaping. ROS: 19:25 Constitutional: Positive for poor PO intake, Negative for chills, fever, cp 19:25 Eyes: Negative for injury, pain, redness, and discharge, cp 19:25 ENT: Negative for drainage from ear(s), ear pain, sore throat, difficulty swallowing, difficulty handling secretions, 19:25 Cardiovascular: Negative for chest pain, palpitations, 19:25 Respiratory: Negative for cough, shortness of breath, wheezing, 19:25 Abdomen/GI: Positive for abdominal pain, nausea and vomiting, anorexia, Negative for diarrhea, constipation, hematemesis, 19:25 Neuro: Negative for altered mental status, dizziness, headache, weakness, 19:25 All other systems are negative, Exam: 19:30 Constitutional: The patient appears in no acute distress, alert, awake, non-toxic, well cp developed, well nourished, obese, uncomfortable, 19:30 Head/Face: Normocephalic, atraumatic. cp 19:30 Eyes: Periorbital structures: appear normal, Conjunctiva: normal, no exudate, no injection, Sclera: no appreciated abnormality, Lids and lashes: appear normal, bilaterally, 19:30 ENT: External ear(s): are unremarkable, Nose: is normal, Mouth: Lips: moist, Oral mucosa: pink and intact, moist, Posterior pharynx: Airway: no evidence of obstruction, patent, 19:30 Chest/axilla: Inspection: normal, 19:30 Cardiovascular: Rate: tachycardic, Rhythm: regular, 19:30 Respiratory: the patient does not display signs of respiratory distress, Respirations: normal, no use of accessory muscles, no retractions, labored breathing, is not present, Breath sounds: are clear throughout, no decreased breath sounds, no stridor, no wheezing, 19:30 Abdomen/GI: Inspection: abdomen appears normal, Bowel sounds: active, all quadrants, Palpation: soft, in all quadrants, moderate abdominal tenderness, in the epigastric area, right upper quadrant and left upper quadrant, rebound tenderness, is not appreciated, 19:30 Back: CVA tenderness, is absent, 19:30 Neuro: Orientation: to person, place \T\ time. Mentation: is normal, Motor: moves all fours, strength is normal, Sensation: is normal, Vital Signs: 19:00 BP 157 / 101; Pulse 114; Resp 18; Temp 96.4; Pulse Ox 94% ; Weight 131.54 kg; Height 5 db ft. 11 in. ; 20:00 BP 146 / 95; Pulse 102; Resp 16; Pulse Ox 96% ; me1 21:30 BP 149 / 99; Pulse 99; Resp 17; Pulse Ox 97% on R/A; Pain 6/10; rg5 22:30 BP 139 / 90; Pulse 92; Resp 17; Pulse Ox 97% ; Pain 4/10; rg5 23:00 BP 125 / 77; Pulse 93; Resp 17; Temp 98; Pulse Ox 96% on R/A; Pain 0/10; rg5 19:00 Body Mass Index 40.45 (131.54 kg, 180.34 cm) db 21:30 Pain Scale: Adult rg5 22:30 Pain Scale: Adult rg5 23:00 Pain Scale: Adult rg5 MDM: 19:03 Medical Screening Exam initiated cp 20:00 Differential diagnosis: cholecystitis, Cholelithiasis, gastritis, gastroesophageal cp reflux disease, GI Bleed, non-specific abd pain, pancreatitis, Peptic Ulcer Disease, Perf. Duodenal Ulcer, Perf. Gastric Ulcer, Pyelonephritis, Ureterolithiasis, urinary tract infection. 23:06 Data reviewed: vital signs, nurses notes, lab test result(s), radiologic studies, CT cp scan, plain films, and as a result, I will discharge patient. 23:06 I considered the following discharge prescriptions or medication management in the emergency department Medications were administered in the Emergency Department. See MAR. Counseling: I had a detailed discussion with the patient and/or guardian regarding the historical points, exam findings, and any diagnostic results supporting the discharge/admit diagnosis, lab results, radiology results, to return to the emergency department if symptoms worsen or persist or if there are any questions or concerns that arise at home. Special discussion: Based on the patient's Hx, exam, and Dx evaluation, there is no indication for emergent surgery or inpatient Tx. It is understood by the patient/guardian that if the Sx's persist or worsen they need to return immediately for re-evaluation. 06/24 19:16 Order name: CBC with Diff; Complete Time: 21:35 06/24 21:35 Interpretation: Normal except: WBC 17.50; RBC 5.88; DARIELA% 86.1; LYM% 9.1; NEUT A 15.1. 06/24 19:16 Order name: CMP; Complete Time: 21:35 cp 06/24 21:35 Interpretation: Normal except: GLUC 255; AST 14; ALK 42; GLOB 4.2; A/G 0.8. 06/24 19:16 Order name: Lipase; Complete Time: 21:35 cp 06/24 19:16 Order name: Urinalysis w/ reflexes; Complete Time: 21:35 06/24 20:37 Order name: CBC Smear Scan; Complete Time: 21:35 EDMS 06/24 19:16 Order name: XRAY Chest (1 view); Complete Time: 21:35 06/24 19:19 Order name: CT Abd/Pelvis - IV Contrast Only; Complete Time: 21:35 cp 06/24 19:16 Order name: IV Saline Lock; Complete Time: 19:27 06/24 19:16 Order name: Labs collected and sent; Complete Time: 19:27 06/24 21:36 Order name: PO challenge; Complete Time: 21:48 cp Administered Medications: 19:47 Drug: TORadol - Ketorolac IVP 15 mg IVP once Route: IVP; Site: right antecubital; me1 19:48 Follow up: Response: No adverse reaction; Pain is decreased me1 19:47 Drug: Ondansetron IVP 4 mg IVP once; over 2 minutes Route: IVP; Site: right antecubital;me1 19:48 Follow up: Response: No adverse reaction; Nausea is decreased me1 19:47 Drug: NS 0.9% IV 1000 ml IV at 1 bolus Per protocol; to be given as a bolus over 60 me1 minutes Route: IV; Rate: 1 bolus; Site: right antecubital; 21:48 Follow up: IV Status: Completed infusion; IV Intake: 1000ml rg5 19:47 Drug: Pantoprazole IVP 40 mg IVP once Route: IVP; Site: right antecubital; me1 19:48 Follow up: Response: No adverse reaction me1 21:47 Drug: NS 0.9% IV 1000 ml IV at 1000 ml once; to be given as a bolus over 60 minutes rg5 Route: IV; Rate: 1000 ml; Site: right antecubital; 23:00 Follow up: IV Status: Completed infusion; IV Intake: 1000ml rg5 21:59 Drug: GI Cocktail without - (Maalox PO 30 ml, Lidocaine Mucous Membrane 2 % 15 rg5 ml) PO once Route: PO; 22:30 Follow up: Response: No adverse reaction rg5 21:59 Drug: Famotidine IVP 20 mg IVP once; dilute with 10 mL 0.9% NaCl; give over 2 minutes rg5 Route: IVP; Site: right antecubital; 22:31 Follow up: Response: No adverse reaction rg5 22:15 Drug: metoCLOPramide IVP 10 mg IVP once; over 1 to 2 minutes Route: IVP; Site: right rg5 antecubital; 22:31 Follow up: Response: No adverse reaction; Pain is decreased rg5 22:15 Drug: diphenhydrAMINE IVP 25 mg IVP once Route: IVP; Site: right antecubital; rg5 22:31 Follow up: Response: No adverse reaction; Pain is decreased rg5 Disposition Summary: 06/24/24 23:07 Discharge Ordered Notes: Location: Home cp Problem: new cp Symptoms: have improved cp Condition: Stable cp Diagnosis - Nausea with vomiting, unspecified cp - Upper abdominal pain, unspecified cp Followup: cp - With: Private Physician - When: 2 - 3 days - Reason: symptoms continue Discharge Instructions: - Discharge Summary Sheet cp - Abdominal Pain, Adult cp - Nausea and Vomiting, Adult cp Forms: - Medication Reconciliation Form cp - Antibiotic Education cp - Prescription Opioid Use cp - Patient Portal Instructions cp - Leadership Thank You Letter cp - Work release form [facility] Prescriptions: - Protonix 40 mg Oral Tablet - take 1 tablet ORAL route once daily; 30 tablet; Refills: 0, Product Selection cp Permitted - ondansetron 8 mg Oral Tablet,disintegrating - take 1 tablet ORAL route every 12 hours; 10 tablet; Refills: 0, Product cp Selection Permitted Addendum: 06/27/2024 15:00 Co-signature as Attending Physician, Abraham Heredia MD I agree with the assessment and c roger plan of care. Signatures: Dispatcher [employer] Abraham Kline MD MD cha Page, Corey, PA PA cp Yamileth Allan, RN RN Ijeoma Galvez RN RN me1 Hunter Barksdale RN RN rg5 Corrections: (The following items were deleted from the chart) 06/24 19:02 19:02 Allergies: NKA; db db 19:16 19:16 CBC+H.LAB.BRZ ordered. EDMS EDMS 19:16 19:16 COMPREHENSIVE METABOLIC PANEL+C.LAB.BRZ ordered. EDMS EDMS 19:16 19:16 LIPASE+C.LAB.BRZ ordered. EDMS EDMS 19:16 19:16 Urinalysis+U.LAB.BRZ ordered. EDMS EDMS 19:16 19:16 Chest Single View+RAD.RAD.BRZ ordered. EDMS EDMS
--- NOTE | 2024-06-24 23:08 | ER ---
Nurse's Notes [facility] Name: Alexander Justice Age: 23 yrs Sex: Male : 2000 Arrival Date: 06/24/2024 Time: 18:49 Bed 20 Private MD: Diagnosis: Nausea with vomiting, unspecified;Upper abdominal pain, unspecified Presentation: 06/24 19:00 Chief complaint: Patient states: ABD PAIN STARTED TODAY WITH VOMITING X 3 STARTED AT db 1600. STATES TOOK PEPCID OTC X 3. Coronavirus screen: Client denies travel out of the [place] in the last 14 days. At this time, the client does not indicate any symptoms associated with coronavirus-19. Ebola Screen: Patient negative for fever greater than or equal to 101.5 degrees Fahrenheit, and additional compatible Ebola Virus Disease symptoms Patient denies exposure to infectious person. Patient denies travel to an Ebola-affected area in the 21 days before illness onset. No symptoms or risks identified at this time. Initial Sepsis Screen: Does the patient meet any 2 criteria? No. Patient's initial sepsis screen is negative. Does the patient have a suspected source of infection? No. Patient's initial sepsis screen is negative. Risk Assessment: Do you want to hurt yourself or someone else? Patient reports no desire to harm self or others. Onset of symptoms was June 24, 2024. 19:00 Method Of Arrival: Ambulatory db 19:00 Acuity: ABIGAIL 3 db Triage Assessment: 19:02 General: Appears in no apparent distress. comfortable, Behavior is calm, cooperative. db Pain: Complains of pain in abdomen. Neuro: Level of Consciousness is awake, alert, obeys commands, Oriented to person, place, time, situation. Respiratory: Airway is patent Respiratory effort is even, unlabored, Respiratory pattern is regular, symmetrical. GI: Abdomen is distended, Reports lower abdominal pain, upper abdominal pain, nausea, vomiting. Historical: - Allergies: 19:02 No Known Allergies; db - PMHx: 19:02 allergies; Diabetes - NIDDM; No longer has DM due to weight loss; Heart Murmur; db - Immunization history:: Adult Immunizations unknown. - Infectious Disease History:: Denies. - Social history:: Smoking status: Reported history of juuling and/or vaping. Screenin:[address] [facility] ED Fall Risk Assessment (Adult) History of falling in the last 3 months, me1 including since admission No falls in past 3 months (0 pts) Confusion or Disorientation No (0 pts) Intoxicated or Sedated No (0 pts) Impaired Gait No (0 pts) Mobility Assist Device Used No (0 pt) Altered Elimination No (0 pt) Score/Fall Risk Level 0 - 2 = Low Risk Maintained a safe environment, Provided non-skid footwear, Hourly rounding (assess needs \T\ fall precautionary measures) done. Abuse screen: Denies threats or abuse. Nutritional screening: No deficits noted. Tuberculosis screening: No symptoms or risk factors identified. Assessment: 19:15 General: Appears ill, obese, well groomed, well developed, Behavior is calm, me1 cooperative, appropriate for age, Reports epigastric abdominal pain that started about 16:00 with n/v/d. Pain: Complains of pain in epigastric area Pain does not radiate. Pain currently is 4 out of 10 on a pain scale. Quality of pain is described as stabbing, Pain began suddenly, 3 hours ago. Is episodic. Neuro: Level of Consciousness is awake, alert, obeys commands, Oriented to person, place, time, situation, Appropriate for age. Cardiovascular: Patient's skin is warm and dry. Respiratory: Airway is patent Trachea midline Respiratory effort is even, unlabored, Respiratory pattern is regular, symmetrical. GI: Abdomen is round non-distended, Bowel sounds present X 4 quads. Abd is soft X 4 quads. GI: Reports diarrhea, nausea, vomiting, since 4 pm. : No signs and/or symptoms were reported regarding the genitourinary system. EENT: No signs and/or symptoms were reported regarding the EENT system. Derm: Skin is intact, is healthy with good turgor, Skin is pink, warm \T\ dry. Musculoskeletal: No signs and/or symptoms reported regarding the musculoskeletal system. 21:25 Reassessment: Patient and/or family updated on plan of care and expected duration. Pain rg5 level reassessed. Patient is alert, oriented x 3, equal unlabored respirations, skin warm/dry/pink. 22:03 Reassessment: Patient and/or family updated on plan of care and expected duration. Pain rg5 level reassessed. Patient is alert, oriented x 3, equal unlabored respirations, skin warm/dry/pink. 23:00 Reassessment: Patient and/or family updated on plan of care and expected duration. Pain rg5 level reassessed. Patient is alert, oriented x 3, equal unlabored respirations, skin warm/dry/pink. Patient states feeling better. Patient states symptoms have improved. Vital Signs: 19:00 BP 157 / 101; Pulse 114; Resp 18; Temp 96.4; Pulse Ox 94% ; Weight 131.54 kg; Height 5 db ft. 11 in. ; 20:00 BP 146 / 95; Pulse 102; Resp 16; Pulse Ox 96% ; me1 21:30 BP 149 / 99; Pulse 99; Resp 17; Pulse Ox 97% on R/A; Pain 6/10; rg5 22:30 BP 139 / 90; Pulse 92; Resp 17; Pulse Ox 97% ; Pain 4/10; rg5 23:00 BP 125 / 77; Pulse 93; Resp 17; Temp 98; Pulse Ox 96% on R/A; Pain 0/10; rg5 19:00 Body Mass Index 40.45 (131.54 kg, 180.34 cm) db 21:30 Pain Scale: Adult rg5 22:30 Pain Scale: Adult rg5 23:00 Pain Scale: Adult rg5 ED Course: 18:52 Patient arrived in ED. mr 18:58 Abraham Boone PA is PHCP. cp 18:58 Abraham Heredia MD is Attending Physician. cp 19:02 Triage completed. db 19:02 Arm band placed on Patient placed in an exam room. db 19:15 Patient has correct armband on for positive identification. Bed in low position. Call [facility] in reach. Side rails up X2. Provided Education on: POC. Verbalized understanding.. Client placed on continuous cardiac and pulse oximetry monitoring. NIBP monitoring applied. Pulse ox on. NIBP on. 19:15 No provider procedures requiring assistance completed. me1 19:17 Ijeoma Cisneros, RN is Primary Nurse. nc1 19:27 CBC with Diff Sent. me1 19:27 CMP Sent. nc1 19:27 Lipase Sent. me1 19:28 Initial lab(s) drawn, by nc, sent to lab. Inserted saline lock: 22 gauge in right nc1 antecubital area, using aseptic technique. 19:41 CT Abd/Pelvis - IV Contrast Only In Process Unspecified. EDMS 20:07 XRAY Chest (1 view) In Process Unspecified. EDMS 23:30 IV discontinued, bleeding controlled, No redness/swelling at site. Pressure dressing rg5 applied. Administered Medications: 19:47 Drug: TORadol - Ketorolac IVP 15 mg IVP once Route: IVP; Site: right antecubital; me1 19:48 Follow up: Response: No adverse reaction; Pain is decreased me1 19:47 Drug: Ondansetron IVP 4 mg IVP once; over 2 minutes Route: IVP; Site: right antecubital;me1 19:48 Follow up: Response: No adverse reaction; Nausea is decreased me1 19:47 Drug: NS 0.9% IV 1000 ml IV at 1 bolus Per protocol; to be given as a bolus over 60 me1 minutes Route: IV; Rate: 1 bolus; Site: right antecubital; 21:48 Follow up: IV Status: Completed infusion; IV Intake: 1000ml rg5 19:47 Drug: Pantoprazole IVP 40 mg IVP once Route: IVP; Site: right antecubital; me1 19:48 Follow up: Response: No adverse reaction me1 21:47 Drug: NS 0.9% IV 1000 ml IV at 1000 ml once; to be given as a bolus over 60 minutes rg5 Route: IV; Rate: 1000 ml; Site: right antecubital; 23:00 Follow up: IV Status: Completed infusion; IV Intake: 1000ml rg5 21:59 Drug: GI Cocktail without - (Maalox PO 30 ml, Lidocaine Mucous Membrane 2 % 15 rg5 ml) PO once Route: PO; 22:30 Follow up: Response: No adverse reaction rg5 21:59 Drug: Famotidine IVP 20 mg IVP once; dilute with 10 mL 0.9% NaCl; give over 2 minutes rg5 Route: IVP; Site: right antecubital; 22:31 Follow up: Response: No adverse reaction rg5 22:15 Drug: metoCLOPramide IVP 10 mg IVP once; over 1 to 2 minutes Route: IVP; Site: right rg5 antecubital; 22:31 Follow up: Response: No adverse reaction; Pain is decreased rg5 22:15 Drug: diphenhydrAMINE IVP 25 mg IVP once Route: IVP; Site: right antecubital; rg5 22:31 Follow up: Response: No adverse reaction; Pain is decreased rg5 Medication: 19:15 VIS not applicable for this client. me1 Intake: 21:48 IV: 1000ml; Total: 1000ml. rg5 23:00 IV: 1000ml; Total: 2000ml. rg5 Outcome: 23:07 Discharge ordered by MD. cp 23:29 Discharged to home ambulatory, rg5 23:29 Condition: stable 23:29 Discharge instructions given to patient, family, Instructed on discharge instructions, follow up and referral plans. Demonstrated understanding of instructions, follow-up care, medications, Prescriptions given X 2, 23:30 Patient left the ED. rg5 Signatures: Dispatcher [employer] EDMS Miley Marino, Gage Reg mr Abraham Boone, Yamileth Stone cp, RN RN Ijeoma Galvez RN RN me1 Hunter Barksdale RN RN rg5 Corrections: (The following items were deleted from the chart) 19:02 19:00 Chief complaint: Patient states: ABD PAIN STARTED TODAY WITH VOMITING X 3 STARTED db AT 1600 db 19:02 19:02 Allergies: NKA; db db
[2024-06-25 00:17] VITALS: BP 125/77; TEMP 98; O2SAT 96
== END 2024-06-24 23:30 | disposition home or self-care (01) ==
LOC: ER 18:49
DX: R11.2 Nausea with vomiting, unspecified (principal); R10.10 Upper abdominal pain, unspecified
CPT/HCPCS: 36415; 71045; 74177; 80053; 81001; 83690; 85025; 96361; 96374; 96375; 99284; J1200; J2405; J2470; J2765; J7030; Q9967